=== PATIENT | male | born 1940 | race Caucasian/White ===

== ENCOUNTER → 2018-02-17 12:11 | Outpatient (CLI) | payer MEDICARE, OTHER, SELFPAY | PROVIDERS: Family Provider Internal Medicine; PCP Internal Medicine; Referring Provider Dermatology; Visit Provider Dermatology | DX: L02.415 Cutaneous abscess of right lower limb (principal) | CPT/HCPCS: 87070; 87077; 87186; 87205 ==

== ENCOUNTER → 2019-02-12 06:19 | Outpatient (CLI) | payer MEDICARE, OTHER, SELFPAY ==
--- NOTE | 2019-02-13 14:19 | STRESSREP_ITS ---
Stress Test Report Date: 02/12/2019 Procedure: Pharmacologic stress nuclear imaging study Indications: Shortness of breath Consent: Per the patient Procedure: The patient underwent pharmacologic (Regadenoson) evaluation with a peak heart rate of 82 beats per minute (57 %predicted maximal heart rate) and a peak blood pressure of 148/70 mmHg. The baseline ECG demonstrated sinus rhythm. EKG during lexiscan infusion revealed no significant ischemic changes. EKG post infusion revealed no significant ischemic changes. [There were no cardiac dysrhythmias pretest, during pharmacologic infusion, or recovery]. [There was no complaint of chest discomfort during pharmacologic infusion or recovery]. The examination was discontinued secondary to completion of protocol. Impression: 1. Lexiscan stress test test is negative for Lexiscan infusion induced EKG changes of ischemia. 2. Lexiscan stress test test is negative for Lexiscan infusion induced chest pain. 3. Results of the nuclear portion of the test is as below Myocardial perfusion imaging study: Technique: The patient was injected with [10] millicuries of technetium 99m Cardiolite and subsequently rest SPECT Cardiolite nuclear imaging was obtained in the horizontal long, vertical long, and short axis views. The patient underwent pharmacologic (Regadenoson) evaluation. Please see above for details. The patient was injected with 36 millicuries of technetium 99m Cardiolite and subsequently stress SPECT Cardiolite nuclear imaging was obtained in the horizontal long, vertical long, and short axis views. A gated Cardiolite study at peak stress was obtained. Interpretation: Rest and stress SPECT Cardiolite nuclear imaging status post realignment, normalization, and attenuation correction demonstrate normal myocardial radioisotope uptake on the rest and stress images. Gated images reveal no significant regional wall motion abnormalities. The reported LVEF is greater than 70 %. Impression: 1. There is no evidence of significant ischemia or infarction. 2. Estimated ejection fraction is greater than 70%. This note was generated with [employer]uppet[employer] software. It may contain incorrect words, spelling, and punctuation that were not noted in checking the note before signing.
== END ==
PROVIDERS: Family Provider Internal Medicine; PCP Internal Medicine; Referring Provider Internal Medicine; Visit Provider Internal Medicine
DX: R06.02 Shortness of breath (principal)
CPT/HCPCS: 78452; 93017; A9500; A4216; J2785

== ENCOUNTER 2021-05-10 16:04 | Observation (INO) | payer MEDICARE, OTHER, SELFPAY ==
[2021-05-10 16:06] VITALS: BP 142/67; PULSE 72; RESP 18; TEMP 36.4; O2SAT 98; BMI 22.3
[2021-05-10 16:44] LABS: Absolute Lymphocyte Count 2.24 X10^3/uL (0.83-4.51); Absolute Neutrophil Count 7.9 X10^3/uL (2.0-7.7); Basophil# 0.06 X10^3/uL; Basophil% 0.5 % (0-1); Eosinophil# 0.05 X10^3/uL; Eosinophils% 0.5 % (0-5); Hematocrit 41.3 % (40-54); Hemoglobin 13.2 g/dL (13.0-16.5); Lymphocyte # 2.24 X10^3/ul (0.83-4.51); Lymphocyte % 20.3 % (19-41); Mean Corpuscular Hgb 29.3 pg (27.0-32.0); Mean Corpuscular Volume 91.8 fL (80-94); Mean Platelet Vol. 9.4 fl (6.2-12.0); Monocyte# 0.77 X10^3/uL; NRBC Flagged by Analyzer 0 % (0-5); Neutrophil # 7.89 X10^3/uL (2.7-7.7); Neutrophil % 71.4 % (47-70); Platelet Count 356 K/mm3 (150-450); RBC Distribution Width SD 50.6 fl (35.1-43.9)
[2021-05-10 16:59] LABS: Anion Gap 6 (5-15); BUN 13 mg/dL (7-18); BUN/Creat Ratio 14.3 RATIO (10-20); Calcium,Total 9.2 mg/dL (8.5-10.1); Chloride 106 mmol/L (98-107); Creatinine, Serum 0.91 mg/dL (0.70-1.30); EST Glomerular Filtration Rate 86 mL/min (>60); Est Glom Filt Rate - Afr Amer 103 mL/min (>60); Estimated Creatinine Clearance 67.57 ml/min; Glucose 113 mg/dL (74-106); Potassium 4.7 mmol/L (3.5-5.1); Sodium Level 138 mmol/L (136-145)
[2021-05-10 17:34] LABS: Mucous, Urine 0 SEEN /hpf (<or=2+); Squamous Epithelial Cells - UA 0 SEEN /hpf (0-5)
[2021-05-10 17:45] LABS: Color, Urine Yellow (Yellow); Glucose, Dipstick Normal (Normal); Ketone-Dipstick 50 mg/dl (Negative); Leukocyte Esterase-Dipstick 25 /ul (Negative); Nitrite-Dipstick Negative (Negative); Occult Blood-Urine 10 /ul (Negative); Protein-Dipstick 30 mg/dl (Negative); Urine Bilirubin Dipstick Negative (Negative); Urine Clarity Clear (Clear); Urine Urobilinogen Normal (Normal)
[2021-05-10 18:08] LABS: Bacteria RARE /hpf (None Seen); Red Blood Cells-Urine 0-5 SEEN /hpf (0-5); White Blood Cells 0-5 SEEN /hpf (0-5)
--- NOTE | 2021-05-10 18:57 | CT_ITS ---
We are attempting to reach an attending provider to discuss findings. An addendum with communication details will be sent when the communication is complete. STUDY: CT ABDOMEN AND PELVIS WITH CONTRAST REASON FOR EXAM: Male, 80 years old. Abdominal pain RADIATION DOSAGE (If Supplied By Facility): CTDIvol = ( 12.125 ) mGy, DLP = ( 656.08 ) mGycm TECHNIQUE: Transaxial images were obtained from the dome of the diaphragm to the symphysis pubis without oral contrast. IV 100mL Isovue-300 was administered. Sagittal and coronal images were reconstructed. Individualized dose optimization techniques were used for this CT. COMPARISON: None. FINDINGS: The visualized lung bases are unremarkable. The visualized portions of the heart are within normal limits. Normal liver. Normal gallbladder and extrahepatic biliary system. Normal spleen. Normal pancreas. Normal bilateral adrenal glands. Normal right kidney. Normal left kidney. Normal visualized stomach. Several loops of mildly dilated small bowel. Normal colon. There is a tubular, thick-walled appendix (>7mm), consistent with acute appendicitis. There is diffuse atherosclerotic calcification of the abdominal aorta, without a demonstrated aneurysm. Normal inferior vena cava. Normal retroperitoneum. Normal urinary bladder. There are prostatic calcifications. Normal abdominal wall. Normal osseous structures. CT/Abdomen/Pelvis W IV Cont ONLY IMPRESSION: Findings consistent with acute appendicitis. Mild proximal bowel wall thickening and dilatation may be reactive. Electronically Signed: Renny Prado MD at 20:20 EST ,
--- NOTE | 2021-05-10 18:57 | ED.VIS.GI ---
HPI HPI - GI History of Present Illness Chief Complaint: Abd Pain Narrative Narrative: 80-year-old male presenting for evaluation of abdominal pain. He points to his mid abdomen. He states been hurting since this morning. He denies nausea, vomiting, fever, chills, constipation, diarrhea. He has no urinary complaints. He states his pain is 5/10. It does not radiate. Patient also complains of irritation around his rectum when he wipes after a bowel movement. He states this is been going on for a month. He has not had this evaluated however he states that his did look at it and thought she saw white heads with hairs sticking out of him. PFSH PFSH Home Medications aspirin 81 mg PO DAILY@0800 10/20/16 [History Last Taken Unknown] multivitamin [Daily Multiple Vitamin] 1 ea PO DAILY 10/20/16 [History Last Taken Unknown] simvastatin 40 mg PO QHS 10/20/16 [History Last Taken Unknown] losartan 50 mg PO DAILY 05/10/21 [History Last Taken Unknown] rosuvastatin 40 mg PO DAILY 05/10/21 [History Last Taken Unknown] Allergy/AdvReac Type Severity Reaction Status Date / Time cefuroxime [From Ceftin] Allergy Rash Verified 05/10/21 16:05 latex Allergy Rash Verified 05/10/21 16:05 Social History Smoking Status: Current every day smoker tobacco type: cigarettes ROS ROS ED Constitutional Constitutional ED: Denies chills or fever(s) ENT ENT ED: Denies rhinorrhea or sore throat Cardiovascular Cardiovascular: Denies chest pain or palpitations Respiratory/Chest Respiratory/Chest: Denies cough or dyspnea Gastrointestinal Gastrointestinal: Denies abdominal pain or nausea Genitourinary Genitourinary ED: Denies dysuria or hematuria Musculoskeletal Musculoskeletal: Denies arthralgias or myalgias Integumentary Denies Abrasions or rash Neurologic Neurologic: Denies headache(s) or weakness Psychiatric Psychiatric: Denies anxiety or depression EXAM Physical Exam Const Vital Signs: 05/10/21 16:06 05/10/21 19:18 05/10/21 20:34 Temperature 97.6 F L Temperature Source Temporal Pulse Rate 72 70 Respiratory Rate 18 14 Blood Pressure 142/67 H 134/69 H Blood Pressure Mean 92 90 Pulse Ox 98 98 98 Oxygen Delivery Method Room Air Room Air Room Air Positive well nourished General Appearance ED: NAD; Negative for pallor HEENT Reports moist mucous membranes normocephalic and atraumatic Eyes PERRL and EOMs intact bilaterally General Eye ED: Negative for pale conjunctiva or scleral icterus Neck no lymphadenopathy and supple Resp normal respiratory effort and clear to auscultation bilaterally Cardio regular rate and regular rhythm GI Auscultation: normoactive bowel sounds Palpation: soft and tender RLQ Back/Spine no CVA tenderness Neuro Sensorium / Orientation: alert, oriented to person, oriented to place and oriented to time Psych mental status grossly normal and thought process normal Skin General Skin Exam: Negative for jaundice or pallor MDM MDM MDM Narrative Medical decision making narrative: Patient presenting with abdominal pain which he initially pointed to his mid gut. On examination he did not appear tender and stated that maybe he was a little tender in his right lower quadrant. He denies any other associated symptoms. His CBC and CMP are unremarkable. Lipase is normal. Urinalysis is negative for infection. I did had a CT of the abdomen pelvis with IV contrast which does show concern for acute appendicitis. This was discussed with Dr. Mcdaniel who will come evaluate the patient at the bedside. I gave the patient IV fluids and Zosyn. In addition to this he wanted his pain treated now that he knew he was staying in hospital. I gave him morphine and Zofran. Patient been in stable condition. Impression: 1. Acute appendicitis Lab Data Attestation: I reviewed the patient's lab results. Labs: Laboratory Results - last 24 hr 05/10/21 05/10/21 05/10/21 16:31 16:31 16:31 WBC 11.0 RBC 4.50 L Hgb 13.2 Hct 41.3 MCV 91.8 MCH 29.3 MCHC 32.0 RDW Std Deviation 50.6 H RDW Coeff of [place] 15.0 H Plt Count 356 MPV 9.4 Immature Gran % (Auto) 0.300 Neut % (Auto) 71.4 H Lymph % (Auto) 20.3 [place] % (Auto) 7.0 Eos % (Auto) 0.5 Baso % (Auto) 0.5 Absolute Neuts (auto) 7.9 H Absolute Lymphs (auto) 2.24 Nucleated RBC % 0 Sodium 138 Potassium 4.7 Chloride 106 Carbon Dioxide 26.0 Anion Gap 6 BUN 13 Creatinine 0.91 Estim Creat Clear Calc 67.57 Est GFR (MDRD) Af Amer 103 Est GFR (MDRD) Non-Af 86 BUN/Creatinine Ratio 14.3 Glucose 113 H Calcium 9.2 Lipase 123 Urine Color Urine Clarity Urine pH Ur Specific [place] Urine Protein Urine Glucose (UA) Urine Ketones Urine Occult Blood Urine Nitrite Urine Bilirubin Urine Urobilinogen Ur Leukocyte Esterase Urine RBC Urine WBC Ur Squamous Epith Cells Urine Bacteria Urine Mucus 05/10/21 17:26 WBC RBC Hgb Hct MCV MCH MCHC RDW Std Deviation RDW Coeff of [place] Plt Count MPV Immature Gran % (Auto) Neut % (Auto) Lymph % (Auto) [place] % (Auto) Eos % (Auto) Baso % (Auto) Absolute Neuts (auto) Absolute Lymphs (auto) Nucleated RBC % Sodium Potassium Chloride Carbon Dioxide Anion Gap BUN Creatinine Estim Creat Clear Calc Est GFR (MDRD) Af Amer Est GFR (MDRD) Non-Af BUN/Creatinine Ratio Glucose Calcium Lipase Urine Color Yellow Urine Clarity Clear Urine pH 6.0 Ur Specific [place] 1.020 Urine Protein 30 H Urine Glucose (UA) Normal Urine Ketones 50 H Urine Occult Blood 10 H Urine Nitrite Negative Urine Bilirubin Negative Urine Urobilinogen Normal Ur Leukocyte Esterase 25 H Urine RBC 0-5 SEEN Urine WBC 0-5 SEEN Ur Squamous Epith Cells 0 SEEN Urine Bacteria RARE Urine Mucus 0 SEEN Radiography Diagnostic Testing: Clinical Impression(s) from Imaging Studies Abdomen/Pelvis CT 05/10/21 18:57 IMPRESSION: Findings consistent with acute appendicitis. Mild proximal bowel wall thickening and dilatation may be reactive. Electronically Signed: Renny Prado MD at 20:20 EST , ADDENDUM: 05/10/212042 IMPRESSION: Findings consistent with acute appendicitis. Mild proximal bowel wall thickening and dilatation may be reactive. N.B. : The above Results were Read Back by Renny Prado MD to Dr. Madi Howard DO, DO, and understanding confirmed on 05/10/2021 20:36:39 (ET). Electronically Signed: Renny Prado MD at 20:20 EST , Discharge Plan Triage Chief Complaint: Abd Pain ED Provider: Madi Howard Dx/Rx/DC Orders Prescriptions: No Action multivitamin [Daily Multiple] 1 EACH tablet 1 ea PO DAILY RF: 0 simvastatin 40 MG tablet 40 mg PO QHS RF: 0 aspirin 81 MG tablet,chewable 81 mg PO DAILY@0800 RF: 0 rosuvastatin 40 mg tablet 40 mg PO DAILY RF: 0 losartan 50 mg tablet 50 mg PO DAILY RF: 0 Primary Care Provider: Charisse Benson
[2021-05-10 19:18] VITALS: O2SAT 98
[2021-05-10 19:21] LABS: Lipase 123 U/L (73-393)
[2021-05-10 20:34] VITALS: BP 134/69; PULSE 70; RESP 14; O2SAT 98
[2021-05-10] MEDS: Ondansetron 4 MG/2 ML Vial IV (20:39)
[2021-05-10] MEDS: Morphine 4 MG/ML Syringe IV (20:40)
--- NOTE | 2021-05-10 21:21 | PCM.HP.STD ---
HPI - General HPI Narrative ROBBIE MG, is a 80 M who presents to [facility] with complaints of acute onset abdominal pain at 10 AM this morning. He states the pain began rather generalized around his umbilicus and has not migrated but he does have some associated back pain at this point. ER work-up is notable for CBC demonstrating normal white blood cell count but evidence of a left shift. CT imaging was remarkable for evidence of acute appendicitis. Surgery was asked to evaluate patient once this imaging resulted. Patient states this is his first such episode of abdominal pain. He denies any associated nausea or vomiting. He states he had a normal bowel movement this morning. He denies any associated fevers or chills. Past medical history is notable for hypertension, hyperlipidemia, and skin cancer. Patient is a current smoker and has been smoking for the past 60 years. He averages 12 cigarettes a day, but previously smoked as much as a pack a day. He has never had a Covid infection but has received both vaccine doses and his booster. He also reports a sore spot on the backside of his rectum when wiping and questions whether this is related to his abdominal process. [facility] Home Medications aspirin 81 mg PO DAILY@0800 10/20/16 [History Last Taken Unknown] multivitamin [Daily Multiple Vitamin] 1 ea PO DAILY 10/20/16 [History Last Taken Unknown] simvastatin 40 mg PO QHS 10/20/16 [History Last Taken Unknown] losartan 50 mg PO DAILY 05/10/21 [History Last Taken Unknown] rosuvastatin 40 mg PO DAILY 05/10/21 [History Last Taken Unknown] Allergy/AdvReac Type Severity Reaction Status Date / Time cefuroxime [From Ceftin] Allergy Rash Verified 05/10/21 16:05 latex Allergy Rash Verified 05/10/21 16:05 Social History Smoking Status: Current every day smoker tobacco type: cigarettes Vital Signs Vital Signs Vital Signs: 05/10/21 16:06 05/10/21 19:18 05/10/21 20:34 Temperature 97.6 F L Temperature Source Temporal Pulse Rate 72 70 Respiratory Rate 18 14 Blood Pressure 142/67 H 134/69 H Blood Pressure Mean 92 90 Pulse Ox 98 98 98 Oxygen Delivery Method Room Air Room Air Room Air Weight Weight: 160 lb Body Mass Index (BMI) 22.3 Physical Exam Const alert and oriented x3 General Appearance: cooperative and well developed GI soft to palpation GI Narrative: Patient with some left lower quadrant tenderness but primary tenderness in the right lower quadrant over McBurney's point. Positive psoas, positive obturator. 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 This area is tender to palpation. Inspection: Negative for abdominal distention Palpation: guarding RLQ Results Lab / Micro Data Result Diagrams: 05/10/21 16:31 05/10/21 16:31 Labs: Laboratory Results - last 24 hr 05/10/21 16:31: WBC 11.0, RBC 4.50 L, Hgb 13.2, Hct 41.3, MCV 91.8, MCH 29.3, MCHC 32.0, RDW Std Deviation 50.6 H, RDW Coeff of Santana 15.0 H, Plt Count 356, MPV 9.4, Immature Gran % (Auto) 0.300, Neut % (Auto) 71.4 H, Lymph % (Auto) 20.3, [place] % (Auto) 7.0, Eos % (Auto) 0.5, Baso % (Auto) 0.5, Absolute Neuts (auto) 7.9 H, Absolute Lymphs (auto) 2.24, Nucleated RBC % 0 05/10/21 16:31: Sodium 138, Potassium 4.7, Chloride 106, Carbon Dioxide 26.0, Anion Gap 6, BUN 13, Creatinine 0.91, Estim Creat Clear Calc 67.57, Est GFR (MDRD) Af Amer 103, Est GFR (MDRD) Non-Af 86, BUN/Creatinine Ratio 14.3, Glucose 113 H, Calcium 9.2 05/10/21 16:31: Lipase 123 05/10/21 17:26: Urine Color Yellow, Urine Clarity Clear, Urine pH 6.0, Ur Specific [place] 1.020, Urine Protein 30 H, Urine Glucose (UA) Normal, Urine Ketones 50 H, Urine Occult Blood 10 H, Urine Nitrite Negative, Urine Bilirubin Negative, Urine Urobilinogen Normal, Ur Leukocyte Esterase 25 H, Urine RBC 0-5 SEEN, Urine WBC 0-5 SEEN, Ur Squamous Epith Cells 0 SEEN, Urine Bacteria RARE, Urine Mucus 0 SEEN Radiology Impression Abdomen/Pelvis CT 05/10/21 18:57 IMPRESSION: Findings consistent with acute appendicitis. Mild proximal bowel wall thickening and dilatation may be reactive. Electronically Signed: Renny Prado MD at 20:20 EST , ADDENDUM: 05/10/212042 IMPRESSION: Findings consistent with acute appendicitis. Mild proximal bowel wall thickening and dilatation may be reactive. N.B. : The above Results were Read Back by Renny Prado MD to Dr. Madi Howard DO, DO, and understanding confirmed on 05/10/2021 20:36:39 (ET). Electronically Signed: Renny Prado MD at 20:20 EST , Assessment & Plan Assessment/Plan (1) Appendicitis: PLAN: This is a 80-year-old, reasonably healthy, male who presents with a less than 12-hour history of acute onset abdominal pain and CT imaging consistent with acute appendicitis. His exam confirms this diagnosis and laparoscopic appendectomy is recommended. Procedure and postoperative expectations were described to the patient and his spouse in detail. They are accepting of this recommendation and wished to proceed as described. Antibiotics are already started by emergency medicine. Patient to be transferred from the ER to the operating room area but then plan for overnight observation following the surgery. 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 Would recommend a small biopsy once patient is through the recovery of his appendicitis. Charges/Coding Visit Charges Inpatient E&M: 45995 Init Hosp L2
--- NOTE | 2021-05-10 21:50 | APP_PTH ---
PATIENT: ROBBIE MG LOC: MS3 U#:[id number] AGE/SX: 80/M ROOM: TX311 RE05/11/[address]: Dr. Nazario Mcdaniel MD : 1940 BED: 1 DIS: 05/11/2021 SPEC #: [id number] RECD: 05/11/21 07:30 STATUS: YELENA RESebastien #: [id number] NIRAJ: 05/10/21 21:[address]: Nazario Mcdaniel DEPT: SURGICAL PATHOLOGY RECD BY: Marybeth Cooper ENTERED: 05/11/21 07:56 SP TYPE: APPENDIX OTHR DR: Dr. Charisse Benson MD Tissues: Appendix, NOS Procedures: Surgery Specimen Level III HEADER OPERATION: Laparoscopic appendectomy PRE-OP DIAGNOSIS: Acute appendicitis TISSUE SUBMITTED: Appendix MICROSCOPIC DIAGNOSIS Appendix, appendectomy: Acute appendicitis and periappendicitis. KIMBERLY:aurelia 05/12/2021 MICROSCOPIC DESCRIPTION Slides are reviewed. GROSS DESCRIPTION Received in fixative is one container labeled with the patient's name and designated appendix. The specimen consists of an appendix measuring 6 cm in length. The distal 3.5 cm length of the appendix is dilated and measures up to 1 cm in diameter and the rest of the appendix measures 0.5 cm in diameter. No obvious perforation is identified. The serosa is congested. The dilated portion of the appendix is filled with fecal material. No fecalith is identified. Floor Coverings Installer sections are submitted in one cassette. / SJ:aurelia 05/11/2021 TC:2 CPT: 42425
--- NOTE | 2021-05-10 22:22 | EKG12_ITS ---
Test Reason : PRE OP Blood Pressure : / mmHG Vent. Rate : 073 BPM Atrial Rate : 073 BPM P-R Int : 170 ms QRS Dur : 096 ms QT Int : 396 ms P-R-T Axes : 063 101 073 degrees QTc Int : 436 ms Sinus rhythm with Premature atrial complexes Nonspecific ST abnormality Abnormal ECG Confirmed by MIO ZAMORANO, MARTIN ([id number]), newspaper editor BRUCE FRANCO ([id number]) on 05/11/2021 10:24:54 A M Referred By: BETTY Confirmed By:SOPHIA LIEBERMAN MD
[2021-05-10 22:31] VITALS: BP 134/69; PULSE 82; RESP 16; TEMP 35.7; O2SAT 98
[2021-05-10] MEDS: Bupivacaine Mpf 0.5% 30 ML VIAL (23:58)
[2021-05-11] VITALS (11 sets, daily range): BP systolic 118–148; BP diastolic 49–69; PULSE 66–83; RESP 16–18; TEMP 36.6–37.3; O2SAT 91–97; BMI 22.3
--- NOTE | 2021-05-11 00:09 | OP.PCM_ITS ---
Problems Associated Problem List Diagnoses (1) Acute appendicitis with localized peritonitis without abscess: Report of Operation Date of Procedure: 05/11/21 Pre-Operative Diagnosis: Acute Appendicitis Post-Operative Diagnosis: Acute appendicitis without perforation Surgery/Procedure Performed:: Laparoscopic appendectomy Description of Surgical Findings:: ?Whitish spotting appearance to the small bowel along the mesenteric side ?Normal-appearing appendiceal base with significant dilation and inflammation at the tip and adhesions adjacent to the cecum Surgeon: Nazario Mcdaniel jet dyeing machine operator: None Type of Anesthesia: General/Supplemental Anesthesiologist: Lewis Corado Specimen's removed: Appendix Drains: NA Estimated Blood Loss (mL): 10 Description of Procedure: After appropriate identification in the emergency room the patient was brought to the operating room. There patient was positioned supine on the operating room table (they had previously received antibiotics in the emergency department). Patient was then induced with general endotracheal anesthetic. The abdomen was prepped and draped in usual sterile fashion. Formal timeout was conducted to confirm both the patient and the procedure. A supraumbilical incision was made and carried down to the level of the fascia which was sharply opened. After opening the peritoneum in like fashion, a f norm sweep was made to confirm position, and a balloon trocar was placed and pneumoperitoneum was established to 15 mmHg. Patient was positioned in Trendelenburg with the left side down. 2 additional 5 mm trocars were placed in the left lower quadrant and suprapubic positions. The peritoneum was inspected and there were no signs of inadvertent injury from this Posey entry. With the laparoscope I observed an a loop of small bowel with some white spots seen along the mesenteric aspect of the bowel. The appendix was visualized with a normal base but the body and tip were not visible because they were tucked to the right right and deep to the cecum. The laparoscopic harmonic scalpel was used to divide the adhesions between the epiploic fat and the lateral sidewall to expose the appendix. I attempted to bluntly free the appendix from this pocket but it densely adherent at the tip. Using blunt laparoscopic dissection, a window was made in the mesoappendix adjacent to the appendiceal base. The mesoappendix was divided for a distance with application of a laparoscopic harmonic scalpel. Still, the tip remained adherent in the pocket so I carefully grasped this tissue to minimize the risk for perforation and elevated to the point that I was able to divide the adherent mesoappendix with additional application of a laparoscopic harmonic scalpel. Then the base of the appendix was sealed and amputated with the use of a Endo MARIVEL stapler. The appendix was placed in an Endo Catch bag. The staple line was inspected for hemostasis. After hemostasis was confirmed the appendix was removed from the umbilical port site. Pneumoperitoneum was then evacuated and the supraumbilical port site fascia was closed with #1 Vicryl in a [id number] fashion. The port sites were infil trated with 13 mL local anesthetic. The skin of each port site was closed with 4-0 Monocryl in a subcuticular fashion. Steri-Strips and OpSite dressings were applied. Patient tolerated procedure well without any apparent complications. They were awoken from general anesthetic without issue and transferred to post anesthesia care unit for ongoing recovery. Complications None Admit VTE Documentation VTE Mechan Device Prophylaxis: SCD's Procedures Digestive 40xxx-49xxx: 10136 Laparoscopy appendectomy
[2021-05-11] MEDS: 0.9% Normal Saline 1,000 ML 50 ML IV (01:47)
[2021-05-11] MEDS: HYDROmorphone 0.5 MG/0.5 ML SYRINGE IV (01:47)
[2021-05-11] MEDS: 0.9% Saline Lock 10 ML Syringe IV (01:48)
[2021-05-11] MEDS: oxyCODONE 5 MG Tablet PO ×3 (02:22→14:02)
--- NOTE | 2021-05-11 07:29 | PCM.DC ---
Discharge Instructions Diet Discharge Diet: No restrictions Activity Discharge Activity: May Not Drive (No driving while using narcotic pain medication) and May Shower Lifting Restrictions: No lifting greater than 15 pounds for 2 weeks after surgery Dressing / Incision Call your doctor if your incision/area has: Continuous Slow Oozing, Increased Pain/ Swelling, Increased Redness, Foul Smelling Discharge and Swelling at the incision site Call your doctor if you observe: Fever of 101 or Higher and Inability to urinate Remove Dressing in: 1 day (Please leave Steri-Strips intact until they fall off spontaneously or are taken off at your follow-up visit) Cleanse incision/area with: Soap & Water Follow Up Care Please Follow Up With: Nazario Mcdaniel MD When: 1 week postop Test Results: Test results from this visit will be discussed in further detail at your follow-up appointment, if applicable. Discharge Plan Admission Admit Date/Time: 05/11/21 00:48 Primary Reason for Your Visit: Acute appendicitis Attending Provider: Nazario Mcdaniel Primary Care Provider: Charisse Benson Instructions Patient Instructions: Appendectomy Laparoscopic Dc Discharge Orders/Prescriptions Prescriptions: New oxycodone 5 mg Tablet 5 mg PO Q6H PRN PRN (Reason: Pain Score 6-10) 5 Days Qty: 10 RF: 0 Continued multivitamin [Daily Multiple] 1 EACH tablet 1 ea PO DAILY RF: 0 aspirin 81 MG tablet,chewable 81 mg PO DAILY@0800 RF: 0 rosuvastatin 40 mg tablet 40 mg PO QHS RF: 0 losartan 50 mg tablet 50 mg PO DAILY RF: 0 Referrals / Follow Up: Charisse Benson MD [Primary Care Provider] -
--- NOTE | 2021-05-11 07:31 | DS.PCM_ITS ---
Providers Date of Admission: 05/11/21 Primary Care Physician: Dr. Charisse Benson MD Reason For Visit: ACUTE APPENDICITIS Diagnosis Discharge Diagnosis (1) Acute appendicitis with localized peritonitis without abscess: Status: Acute Code(s): K35.30 - Acute appendicitis with localized peritonitis, without perforation or gangrene Medications at Discharge Home Medications aspirin 81 mg PO DAILY@0800 10/20/16 multivitamin [Daily Multiple] 1 ea PO DAILY 10/20/16 losartan 50 mg PO DAILY 05/10/21 rosuvastatin 40 mg PO QHS 05/10/21 oxycodone 5 mg PO Q6H PRN PRN 5 Days #10 tab 05/11/21 Hospital Course Operations appendectomy Summary of Care Provided Hospital Course: Patient was seen in the ER on 05/10/2021 after ER work-up and CT imaging showed evidence of acute, uncomplicated appendicitis. Given his medical comorbidities, he is deemed an operative candidate and offered a laparoscopic appendectomy. Patient accepted this recommendation and we proceeded to the operating room for emergent laparoscopic appendectomy. The case proceeded uncomplicated and the patient was admitted for observation overnight. The morning of postoperative day 1 the patient's pain was well controlled and he tolerated advancement to a regular diet. With this clinical progress, he was deemed appropriate for discharge and given a 1 week outpatient follow-up. Physical Exam Const alert, oriented x3 and no apparent distress General Appearance: cooperative GI GI Narrative: Mildly distended, soft, tender to palpation in the right lower quadrant and mildly so over incision sites. Operative dressings are in place over the port sites and are clean and dry without evidence of drainage Weight / BMI Weight Weight: 159 lb 13.362 oz Body Mass Index (BMI) 22.3 ABG / Lab / Microbiology Data Result Diagrams: 05/10/21 16:31 05/10/21 16:31 Laboratory: Laboratory Results - last 24 hr 05/10/21 16:31: WBC 11.0, RBC 4.50 L, Hgb 13.2, Hct 41.3, MCV 91.8, MCH 29.3, MCHC 32.0, RDW Std Deviation 50.6 H, RDW Coeff of [place]ana 15.0 H, Plt Count 356, MPV 9.4, Immature Gran % (Auto) 0.300, Neut % (Auto) 71.4 H, Lymph % (Auto) 20.3, [place] % (Auto) 7.0, Eos % (Auto) 0.5, Baso % (Auto) 0.5, Absolute Neuts (auto) 7.9 H, Absolute Lymphs (auto) 2.24, Nucleated RBC % 0 05/10/21 16:31: Sodium 138, Potassium 4.7, Chloride 106, Carbon Dioxide 26.0, Anion Gap 6, BUN 13, Creatinine 0.91, Estim Creat Clear Calc 67.57, Est GFR (MDRD) Af Amer 103, Est GFR (MDRD) Non-Af 86, BUN/Creatinine Ratio 14.3, Glucose 113 H, Calcium 9.2 05/10/21 16:31: Lipase 123 05/10/21 17:26: Urine Color Yellow, Urine Clarity Clear, Urine pH 6.0, Ur Specific [place] 1.020, Urine Protein 30 H, Urine Glucose (UA) Normal, Urine Ketones 50 H, Urine Occult Blood 10 H, Urine Nitrite Negative, Urine Bilirubin Negative, Urine Urobilinogen Normal, Ur Leukocyte Esterase 25 H, Urine RBC 0-5 SEEN, Urine WBC 0-5 SEEN, Ur Squamous Epith Cells 0 SEEN, Urine Bacteria RARE, Urine Mucus 0 SEEN Radiography Diagnostic Testing: Radiology Impression Abdomen/Pelvis CT 05/10/21 18:57 IMPRESSION: Findings consistent with acute appendicitis. Mild proximal bowel wall thickening and dilatation may be reactive. Electronically Signed: Renny Prado MD at 20:20 EST Reading Location ID and State: [address] [place] [address] Tel , Service support , ADDENDUM: 05/10/212042 IMPRESSION: Findings consistent with acute appendicitis. Mild proximal bowel wall thickening and dilatation may be reactive. N.B. : The above Results were Read Back by Renny Prado MD to Dr. Madi Howard DO, DO, and understanding confirmed on 05/10/2021 20:36:39 (ET). Electronically Signed: Renny Prado MD at 20:20 EST , D/C Instructions Discharge Diet: No restrictions Call your doctor if your incision/area has: Continuous Slow Oozing, Increased Pain/ Swelling, Increased Redness, Foul Smelling Discharge and Swelling at the incision site Call your doctor if you observe: Fever of 101 or Higher and Inability to urinate Cleanse incision/area with: Soap & Water Please Follow Up With: Nazario Mcdaniel MD When: 1 week postop Meaningful Use Info Meaningful Use Diagnoses (Choose all that apply): None applicable Discharge Plan Admission Admit Date/Time: 05/11/21 00:48 Primary Reason for Your Visit: Acute appendicitis Attending Provider: Nazario Mcdaniel Primary Care Provider: Charisse Benson Instructions Patient Instructions: Appendectomy Laparoscopic Dc Discharge Orders/Prescriptions Prescriptions: New oxycodone 5 mg Tablet 5 mg PO Q6H PRN PRN (Reason: Pain Score 6-10) 5 Days Qty: 10 RF: 0 Continued multivitamin [Daily Multiple] 1 EACH tablet 1 ea PO DAILY RF: 0 aspirin 81 MG tablet,chewable 81 mg PO DAILY@0800 RF: 0 rosuvastatin 40 mg tablet 40 mg PO QHS RF: 0 losartan 50 mg tablet 50 mg PO DAILY RF: 0 Referrals / Follow Up: Charisse Benson MD [Primary Care Provider] - Disposition Discharge Orders: Discharge Patient (Routine); Ordered 05/11/21 Ordered By: Dr. Nazario Mcdaniel
[2021-05-11] MEDS: Aspirin 81 MG TAB.CHEW PO (08:39)
--- NOTE | 2021-05-11 14:05 | NURSING ---
Pt took I.S home and instructed to keep using every hour x10 reps while awake. Pt and understand.
== END 2021-05-11 14:05 ==
LOC: ED 18:51 → SDC 21:31 → MS3 21:33 → SDC 05-11 01:12 → MS3 05-11 01:13
PROVIDERS: Admitting Provider Surgery; Emergency Provider Student in an Organized Health Care Education/Training Program; PCP Internal Medicine; Visit Provider Surgery
PROC: 0DTJ4ZZ Resection of Appendix, Percutaneous Endoscopic Approach (ICD-10-PCS; CPT 44970; principal; 2021-05-10 21:50)
DX: K35.30 Acute appendicitis with localized peritonitis, without perforation or gangrene (principal); J44.9 Chronic obstructive pulmonary disease, unspecified; E78.5 Hyperlipidemia, unspecified; F17.210 Nicotine dependence, cigarettes, uncomplicated; I10 Essential (primary) hypertension; I25.10 Atherosclerotic heart disease of native coronary artery without angina pectoris; Z79.899 Other long term (current) drug therapy; Z79.82 Long term (current) use of aspirin; L98.9 Disorder of the skin and subcutaneous tissue, unspecified
CPT/HCPCS: 44970; 00840; 74177; 80048; 81001; 83690; 85025; 88304; 93005; 96365; 96375; 99218; 99251; 99284; 99406; J7030; Q9967; A4216; G0378; G0463; J2405

== ENCOUNTER 2021-06-30 09:29 | Outpatient (CLI) | payer MEDICARE, OTHER, SELFPAY ==
[2021-06-30 10:40] LABS: Absolute Lymphocyte Count 3.31 X10^3/uL (0.83-4.51); Absolute Neutrophil Count 4.2 X10^3/uL (2.0-7.7); Basophil# 0.09 X10^3/uL; Eosinophil# 0.15 X10^3/uL; Eosinophils% 1.7 % (0-5); Hematocrit 41.9 % (40-54); Lymphocyte # 3.31 X10^3/ul (0.83-4.51); Lymphocyte % 37.5 % (19-41); Mean Corpuscular Volume 90.3 fL (80-94); Monocyte# 1.05 X10^3/uL; Monocyte% 11.9 % (0-10); NRBC Flagged by Analyzer 0 % (0-5); Neutrophil # 4.19 X10^3/uL (2.7-7.7); Neutrophil % 47.6 % (47-70); Platelet Count 391 K/mm3 (150-450); RBC Distribution Width CV 15.4 % (11.6-14.6); RBC Distribution Width SD 50.2 fl (35.1-43.9); Red Blood Count 4.64 M/mm3 (4.6-6.2); White Blood Count 8.8 K/mm3 (4.4-11.0)
[2021-06-30 10:50] LABS: EXAGEN MAILED SPECIMEN
[2021-06-30 10:55] LABS: Color, Urine Yellow (Yellow); Glucose, Dipstick Normal (Normal); Ketone-Dipstick Negative (Negative); Leukocyte Esterase-Dipstick Negative /ul (Negative); Nitrite-Dipstick Negative (Negative); Occult Blood-Urine Negative /ul (Negative); Protein-Dipstick Negative (Negative); Specific Gravity, Urine 1.005 (1.002-1.030); Urine Bilirubin Dipstick Negative (Negative); Urine Clarity Clear (Clear); Urine Urobilinogen Normal (Normal); Urine pH 6.5 (5.0 - 8.0)
[2021-06-30 10:56] LABS: Protein, Urine (Random) < 6.0 mg/dL (<11.9)
[2021-06-30 11:11] LABS: ALB/GLOB Ratio 0.7 RATIO (0.9-2.4); AST(SGOT) 17 U/L (15-37); Alanine Aminotransfer ALT/SGPT 24 U/L (16-61); Albumin, Serum 3.5 g/dL (3.2-5.0); Alkaline Phosphatase 111 U/L (45-117); Anion Gap 3 (5-15); BUN 12 mg/dL (7-18); Calcium,Total 9.5 mg/dL (8.5-10.1); Chloride 107 mmol/L (98-107); Creatinine, Serum 0.92 mg/dL (0.70-1.30); EST Glomerular Filtration Rate 84 mL/min (>60); Est Glom Filt Rate - Afr Amer 101 mL/min (>60); Globulin 4.8 g/dL (2.2-4.2); Glucose 108 mg/dL (74-106); Potassium 4.4 mmol/L (3.5-5.1); Protein, Total 8.3 g/dL (6.4-8.2); Sodium Level 136 mmol/L (136-145)
[2021-06-30 11:50] LABS: Hepatitis B Surface Antibody Non-Reactive; Hepatitis B Surface Antigen Non-Reactive (Nonreactive); Hepatitis C Antibody Non-Reactive (Nonreactive)
== END 2021-06-30 23:59 | disposition home or self-care (01) ==
LOC: MTLAB 09:31
PROVIDERS: PCP Internal Medicine; Referring Provider Internal Medicine Rheumatology; Visit Provider Internal Medicine Rheumatology
DX: M06.4 Inflammatory polyarthropathy (principal); J44.9 Chronic obstructive pulmonary disease, unspecified; R76.8 Other specified abnormal immunological findings in serum; I10 Essential (primary) hypertension; E78.5 Hyperlipidemia, unspecified; Z85.820 Personal history of malignant melanoma of skin
CPT/HCPCS: 36415; 80053; 81002; 82570; 84156; 85025; 86706; 86803; 87340

== ENCOUNTER → 2021-07-19 | Outpatient (CLI) | payer MEDICARE, OTHER, SELFPAY ==
[2021-07-19 15:53] LABS: Partial Thromboplast Time 30.9 Seconds (24.1-36.2)
[2021-07-21 18:08] LABS: Dilute Russell Viper Venom 38.1 sec (0.0-47.0); Hexagonal Phase Phospholipid 1 sec (0-11); PTT-LA 33.4 sec (0.0-51.9); Thrombin Time 16.3 sec (0.0-23.0); dPT Confirm Ratio 0.94 Ratio (0.00-1.34)
[2021-07-21 18:11] LABS: Thrombin Time 15.7 sec (0.0-23.0)
[2021-07-21 18:13] LABS: Interpretation Comment: (.)
== END | disposition home or self-care (01) ==
PROVIDERS: PCP Internal Medicine; Referring Provider Internal Medicine Rheumatology; Visit Provider Internal Medicine Rheumatology
DX: M06.4 Inflammatory polyarthropathy (principal); J44.9 Chronic obstructive pulmonary disease, unspecified; I10 Essential (primary) hypertension; R76.8 Other specified abnormal immunological findings in serum; E78.5 Hyperlipidemia, unspecified; Z85.820 Personal history of malignant melanoma of skin
CPT/HCPCS: 36415; 85598; 85610; 85670; 85730

== ENCOUNTER 2021-09-01 08:41 | Inpatient (IN) | payer MEDICARE, OTHER, SELFPAY ==
[2021-09-01] VITALS (12 sets, daily range): BP systolic 104–136; BP diastolic 60–87; PULSE 68–76; RESP 12–18; TEMP 36.4–36.9; O2SAT 92–96; BMI 22.3; BMI 21.2
--- NOTE | 2021-09-01 09:01 | EKG12_ITS ---
Test Reason : WEAKNESS Blood Pressure : / mmHG Vent. Rate : 070 BPM Atrial Rate : 070 BPM P-R Int : 168 ms QRS Dur : 084 ms QT Int : 392 ms P-R-T Axes : 061 101 079 degrees QTc Int : 423 ms Normal sinus rhythm Low voltage QRS Borderline ECG Confirmed by JOSEPHINE ZAMORANO, ELLIOT ([id number]), field map editor BRUCE FRANCO ([id number]) on 09/04/2021 10:46:21 AM Referred By: MUNIRA Confirmed By:ELLIOT BURTON MD
--- NOTE | 2021-09-01 09:01 | CT_ITS ---
We are attempting to reach an attending provider to discuss findings. An addendum with communication details will be sent when the communication is complete. STUDY: CT BRAIN WITHOUT CONTRAST REASON FOR EXAM: Male, 81 years old. off balance RADIATION DOSAGE (If Supplied By Facility): CTDIvol = ( 44.99 ) mGy, DLP = ( 829.85 ) mGycm TECHNIQUE: Transaxial CT imaging of the brain was performed without administration of intravenous contrast material. Individualized dose optimization techniques were used for this CT. COMPARISON: 10/20/2016 FINDINGS: Normal soft tissue structures. Normal calvarium. There is mild cerebral atrophy with widening of the extra-axial spaces and ventricular dilatation. There are areas of decreased attenuation within the white matter tracts of the supratentorial brain, consistent with microvascular disease changes. Normal basal ganglia and thalami. Normal brainstem. Decreased attenuation of the superior aspect of the cerebellum involving both hemispheres worrisome for edema possibly from infarct. Correlation with MRI with contrast is recommended. There is no intracranial hemorrhage. 2 cm area of dilatation decreased attenuation within the left frontal lobe may represent a subacute infarct. Normal visualized paranasal sinuses. CT/Brain/Head without Contrast IMPRESSION: Suspect subacute infarcts of the left frontal lobe and the superior cerebellum. Correlation with MRI with contrast is recommended. No acute intracranial hemorrhage. Electronically Signed: Placido Holley MD at 9:39 EDT ,
--- NOTE | 2021-09-01 09:02 | EDS_ITS ---
HPI History of Present Illness Chief Complaint: Weakness Detail of Chief Complaint: Off balance Informant: patient and spouse/S.O. Onset/Context/Timing Onset: Weeks Context: Gradual Onset Timing: Intermittent Quality and Location: Positive for Difficulty with Ambulation; Negative for Right Facial Droop, Left Facial Droop, Right Face Paresthesia, Left Face Parasthesia, Right Arm Parasthesia, Left Arm Parasthesia, Right Leg Parasthesia, Left Leg Parasthesia, Right Arm Weakness, Left Arm Weakness, Right Leg Weakness, Left Leg Weakness, Slurred Speech, Expressive Aphasia and Receptive Aphasia Current Severity: Mild Maximum Severity: Mild Associated Symptoms Associated Symptoms: Negative for Headache, Nausea, Vomiting and Chest Pain Narrative Narrative: .81-year-old male history of COPD, hypertension and diagnosed with lupus about a month ago. and he states he had appendectomy done months ago and is coming going downhill since that time. Last 3 weeks he has been off balance no falls. 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 Denies any visual speech changes. No headache or head trauma. He denies recent illness. No nausea, vomiting or diarrhea. No dysuria or hematuria. No fever or chills. Prior similar symptoms: No Recent Illness/Hospitalization: No PFSH PFS Medical History COPD (chronic obstructive pulmonary disease) Hyperlipidemia Hypertension Lupus Melanoma Smoker Stroke/cerebrovascular accident Home Medications aspirin 81 mg PO DAILY@0800 10/20/16 [History Last Taken 05/09/21] multivitamin [Daily Multiple] 1 ea PO DAILY 10/20/16 [History Last Taken 05/09/21] losartan 50 mg PO DAILY 05/10/21 [History Last Taken 05/09/21] rosuvastatin 40 mg PO QHS 05/10/21 [History Last Taken 05/09/21] Allergy/AdvReac Type Severity Reaction Status Date / Time cefuroxime [From Ceftin] Allergy Rash Verified 09/01/21 08:45 latex Allergy Rash Verified 09/01/21 08:45 Surgical History History of appendectomy Social History Smoking Status: Current every day smoker tobacco type: cigarettes ROS ROS ED ROS Narrative Ataxia. Review of Systems ROS Unobtainable: Denies due to encephalopathy Constitutional Constitutional ED: Denies fever(s) Eyes Eyes: Denies change in vision ENT ENT ED: Denies ear pain Cardiovascular Cardiovascular: Denies chest pain Respiratory/Chest Respiratory/Chest: Denies dyspnea Gastrointestinal Gastrointestinal: Denies abdominal pain, constipation, diarrhea, nausea or vomit ing Genitourinary Genitourinary ED: Denies dysuria Musculoskeletal Musculoskeletal: Denies myalgias Integumentary Denies rash Neurologic Neurologic: Denies headache(s) Psychiatric Psychiatric: Denies depression Endocrine Endocrinology: Denies polyuria Hematologic/Lymphatic Hematologic/Lymphatic: Denies easy bruising Allergic/Immunologic Allergic/Immunologic ED: Denies urticaria EXAM Physical Exam Narrative Exam Narrative: 81-year-old male no acute distress lying in bed. at bedside. Vital signs stable afebrile. Pulse ox 96% on room air no hypoxia. HEENT exam unremarkable. No facial droop. Normal speech. No trauma. Neck nontender. Lungs clear to auscultation bilaterally. Heart regular rate and rhythm no murmur. Abdomen soft nontender normal bowel sounds no peritoneal signs. Moving all 4 extremities. 5/5 demonstrator sewing techniques strength. Dorsi plantarflexion intact. Fingertip to nose within normal limits. No drift of his arms or legs. Neurologic exam unremarkable. No focal motor deficits. Const Vital Signs: 09/01/21 08:41 09/01/21 09:01 09/01/21 09:16 Temperature 97.9 F Temperature Source Temporal Pulse Rate 75 Pulse Rate [Lying] 70 Pulse Rate [Sitting (for 1 minute prior to obtaining)] 68 Pulse Rate [Standing (for 1 minute prior to obtaining)] 76 Respiratory Rate 16 Respiratory Effort Normal Non-Labored Respiratory Pattern Normal Blood Pressure 104/74 Blood Pressure [Lying] 132/60 H Blood Pressure [Sitting (for 1 minute prior to obtaining)] 130/64 H Blood Pressure [Standing (for 1 minute prior to obtaining)] 125/65 H Blood Pressure Mean 84 Blood Pressure Mean [Lying] 84 Blood Pressure Mean [Sitting (for 1 minute prior to obtaining)] 86 Blood Pressure Mean [Standing (for 1 minute prior to obtaining)] 85 Pulse Ox 96 Oxygen Delivery Method Room Air Positive well nourished and well developed; Negative for obese, cachectic, contractures or unkempt General Appearance ED: well developed and NAD; Negative for unkempt, cachectic or contractures Nutritional Appearance: Negative for cachectic or obese HEENT Reports moist mucous membranes atraumatic Eyes PERRL and EOMs intact bilaterally General Eye ED: Negative for pale conjunctiva or scleral icterus Neck no lymphadenopathy, supple and no JVD General: Negative for tenderness Chest Wall inspection of chest normal and palpation of chest normal Resp normal respiratory effort and clear to auscultation bilaterally Auscultation: Negative for rales, rhonchi or wheezes Cardio no murmurs Rate: regular rate Rhythm: regular rhythm Heart Sounds: S1 normal and S2 normal GI normal to inspection, nondistended, normoactive bowel sounds, soft to palpation, non-tender, non-distended and no masses Inspection: Negative for abdominal distention Auscultation: normoactive bowel sounds Palpation: Negative for tender, guarding or rebound tenderness present Back/Spine no CVA tenderness General Back: Negative for CVA tenderness Cervical Spine: Negative for cervical spine tenderness Thoracic Spine / Upper Back: Negative for thoracic spinal tenderness Extremity normal to inspection General Extremety ED: Negative for deformity, edema or tenderness General Extremity: Negative for deformity or edema Neuro oriented x3 Sensorium / Orientation: alert, oriented to person, oriented to place and oriented to time; Negative for orientation impaired, confused, lethargic or stuporous Speech: speech normal Motor Exam: strength 5/5 throughout; Negative for general weakness Psych mental status grossly normal Appearance: Negative for unkempt Mood & Affect: Negative for depressed or tearful Skin no wounds General Skin Exam: Negative for jaundice Lesions: no lesions Rashes: no rashes and No rashes noted STROKE Vital Signs/Narrative: Vital Signs Temp Pulse Pulse Pulse Pulse Resp BP 09/01/21 09:01 70 68 76 09/01/21 08:41 97.9 F 75 16 104/74 BP BP BP Pulse Ox 09/01/21 09:01 132/60 H 130/64 H 125/65 H 09/01/21 08:41 96 Inital Vital Signs reviewed: Yes MDM MDM MDM Narrative Medical decision making narrative: 81-year-old male with issues with his balance for last 3 weeks. Exam is benign lying in bed. CAT scan labs to be obtained. Consider stroke versus other etiologies. He also will be ambulated to assess his gait. Repeat exam unchanged nurses got the patient up ambulating with a cane he did reasonably well but he could tell he was having balance issues. Due to his CAT scan results he will be admitted for further work-up. Lab Data Attestation: I reviewed the patient's lab results. Lab results narrative: CBC normal white count of 7. H&H 12.9 and 40. Platelets 373. Electrolytes unremarkable gap of 4. BUN and creatinine of 12 and 1. Glucose 104. CAT scan is concerning for cerebellar stroke. Will need additional imaging such as an MRI. I discussed the CAT scan results with the radiologist. Labs: Laboratory Results - last 24 hr 09/01/21 09/01/21 09:10 09:10 WBC 7.5 RBC 4.60 Hgb 12.9 L Hct 40.8 MCV 88.7 MCH 28.0 MCHC 31.6 L RDW Std Deviation 50.8 H RDW Coeff of [place] 15.6 H Plt Count 373 MPV 9.6 Immature Gran % (Auto) 0.100 Neut % (Auto) 55.6 Lymph % (Auto) 30.0 [place] % (Auto) 10.9 H Eos % (Auto) 2.3 Baso % (Auto) 1.1 H Absolute Neuts (auto) 4.2 Absolute Lymphs (auto) 2.25 Nucleated RBC % 0 Sodium 136 Potassium 4.6 Chloride 105 Carbon Dioxide 27.0 Anion Gap 4 L BUN 12 Creatinine 1.03 Estim Creat Clear Calc 58.72 Est GFR (MDRD) Af Amer 89 Est GFR (MDRD) Non-Af 74 BUN/Creatinine Ratio 11.7 Glucose 104 Calcium 9.3 Radiography Diagnostic Testing: Clinical Impression(s) from Imaging Studies Brain CT 09/01/21 09:01 IMPRESSION: Suspect subacute infarcts of the left frontal lobe and the superior cerebellum. Correlation with MRI with contrast is recommended. No acute intracranial hemorrhage. Electronically Signed: Placido Holley MD at 9:39 EDT , ADDENDUM: 09/01/21 0956 IMPRESSION: Suspect subacute infarcts of the left frontal lobe and the superior cerebellum. Correlation with MRI with contrast is recommended. No acute intracranial hemorrhage. N.B. : The above Results were Read Back by Placido Holley MD to Sahntanu Sage MD, and understanding confirmed on 09/01/2021 09:49:30 (ET). Electronically Signed: Placido Holley MD at 9:39 EDT , Chest X-Ray 09/01/21 09:27 IMPRESSION: Possible right lung nodule and right hilar mass or lymphadenopathy. Correlation with CT of the chest with contrast is recommended. Electronically Signed: Placido Holley MD at 9:50 EDT , Chest x-ray, single view, interpreted by myself and radiologist shows right hilar nodule and the radiologist question of possible hilar density. May need further imaging. Rhythm Strip Rhythm Strip: Sinus Rhythm Rate: 70 Ectopy: None EKG Initial EKG: Attestation: I personally reviewed and interpreted this EKG as follows: Interpretation: Sinus Rhythm and No Acute Injury Pattern Comments: Normal sinus rhythm rate of 70 no acute signs of NH, nor ischemia nor dysrhythmia. Stroke Documentation Questions Stroke Team Activated: No Discharge Plan Triage Chief Complaint: Weakness ED Provider: Cesar Metz Dx/Rx/DC Orders Clinical Impression: Acute stroke due to ischemia, Ataxia, History of lupus, History of COPD Prescriptions: No Action multivitamin [Daily Multiple] 1 EACH tablet 1 ea PO DAILY RF: 0 aspirin 81 MG tablet,chewable 81 mg PO DAILY@0800 RF: 0 rosuvastatin 40 mg tablet 40 mg PO QHS RF: 0 losartan 50 mg tablet 50 mg PO DAILY RF: 0 Primary Care Provider: Charisse Benson Referrals: Charisse Benson MD [Primary Care Provider] - Disposition Disposition: Acute Care [facility]
[2021-09-01 09:21] LABS: Absolute Lymphocyte Count 2.25 X10^3/uL (0.83-4.51); Absolute Neutrophil Count 4.2 X10^3/uL (2.0-7.7); Basophil# 0.08 X10^3/uL; Basophil% 1.1 % (0-1); Eosinophil# 0.17 X10^3/uL; Eosinophils% 2.3 % (0-5); Hematocrit 40.8 % (40-54); Hemoglobin 12.9 g/dL (13.0-16.5); Lymphocyte # 2.25 X10^3/ul (0.83-4.51); Mean Corp Hgb Conc 31.6 g/dL (32-36); Mean Corpuscular Volume 88.7 fL (80-94); Mean Platelet Vol. 9.6 fl (6.2-12.0); Monocyte# 0.82 X10^3/uL; Monocyte% 10.9 % (0-10); NRBC Flagged by Analyzer 0 % (0-5); Neutrophil # 4.16 X10^3/uL (2.7-7.7); Neutrophil % 55.6 % (47-70); Platelet Count 373 K/mm3 (150-450); RBC Distribution Width CV 15.6 % (11.6-14.6); RBC Distribution Width SD 50.8 fl (35.1-43.9); White Blood Count 7.5 K/mm3 (4.4-11.0)
--- NOTE | 2021-09-01 09:27 | RAD_ITS ---
STUDY: X-RAY CHEST REASON FOR EXAM: Male, 81 years old. weakness TECHNIQUE: Single AP portable view of the chest. COMPARISON: None. FINDINGS: 1.5 cm nodular opacity projecting over the lower lung worrisome for pulmonary nodule and correlation with CT the chest with contrast is recommended. The lungs are clear and expanded. There is no demonstrated pleural abnormality. Normal size heart. Prominent hilum of the right lung worrisome for right hilar mass or lymphadenopathy. Normal visualized pulmonary arteries. Normal visualized aortic arch and descending thoracic aorta. Normal visualized thoracic spine. Normal visualized ribs, clavicles, and shoulders. There is no demonstrated abnormality of the visualized soft tissue structures of the upper abdomen. RAD/Chest 1 View (Portable) IMPRESSION: Possible right lung nodule and right hilar mass or lymphadenopathy. Correlation with CT of the chest with contrast is recommended. Electronically Signed: Placido Holley MD at 9:50 EDT ,
[2021-09-01 09:33] LABS: Anion Gap 4 (5-15); BUN 12 mg/dL (7-18); BUN/Creat Ratio 11.7 RATIO (10-20); Calcium,Total 9.3 mg/dL (8.5-10.1); Chloride 105 mmol/L (98-107); Creatinine, Serum 1.03 mg/dL (0.70-1.30); EST Glomerular Filtration Rate 74 mL/min (>60); Est Glom Filt Rate - Afr Amer 89 mL/min (>60); Estimated Creatinine Clearance 58.72 ml/min; Glucose 104 mg/dL (74-106); Potassium 4.6 mmol/L (3.5-5.1); Sodium Level 136 mmol/L (136-145)
--- NOTE | 2021-09-01 11:17 | PCM.HP.STD ---
HPI - General General Date of Admission: 09/01/21 Date of Service: 09/01/21 Chief Complaint: unsteadiness HPI Narrative ROBBIE MG, is a 81 M who presents with 3 weeks of unsteadiness. Has not felt well since appendectomy in April. 3 weeks ago he has been unsteady when getting up. He fell today which led to his hospitalization. 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 FOR[facility]LY [facility] Medical History COPD (chronic obstructive pulmonary disease) Hyperlipidemia Hypertension Lupus Melanoma Smoker Stroke/cerebrovascular accident Home Medications aspirin 81 mg PO DAILY@0800 10/20/16 [History Last Taken 05/09/21] multivitamin [Daily Multiple] 1 ea PO DAILY 10/20/16 [History Last Taken 05/09/21] losartan 50 mg PO DAILY 05/10/21 [History Last Taken 05/09/21] rosuvastatin 40 mg PO QHS 05/10/21 [History Last Taken 05/09/21] Allergy/AdvReac Type Severity Reaction Status Date / Time cefuroxime [From Ceftin] Allergy Rash Verified 09/01/21 08:45 latex Allergy Rash Verified 09/01/21 08:45 Family History (Updated 09/01/21 @ 11:[address] Juanpablo Ansari DO) Mother CVA (cerebral vascular accident) Brother CVA (cerebral vascular accident) Surgical History History of appendectomy Social History (Updated 09/01/21 @ 11:[address] Juanpablo Ansari DO) Smoking Status: Heavy Smoker (>10/day) alcohol intake: current alcohol intake frequency: 3 or more drinks per day ROS ROS Narrative All review of systems were negative except as mentioned above in the history of present illness and the other review of systems. Vital Signs Vital Signs Vital Signs: 09/01/21 08:41 09/01/21 09:01 09/01/21 09:16 Temperature 36.6 C Temperature Source Temporal Pulse Rate 75 Pulse Rate [Lying] 70 Pulse Rate [Sitting (for 1 minute prior to obtaining)] 68 Pulse Rate [Standing (for 1 minute prior to obtaining)] 76 Respiratory Rate 16 Respiratory Effort Normal Non-Labored Respiratory Pattern Normal Blood Pressure 104/74 Blood Pressure [Lying] 132/60 H Blood Pressure [Sitting (for 1 minute prior to obtaining)] 130/64 H Blood Pressure [Standing (for 1 minute prior to obtaining)] 125/65 H Blood Pressure Mean 84 Blood Pressure Mean [Lying] 84 Blood Pressure Mean [Sitting (for 1 minute prior to obtaining)] 86 Blood Pressure Mean [Standing (for 1 minute prior to obtaining)] 85 Pulse Ox 96 Oxygen Delivery Method Room Air 09/01/21 10:18 Temperature 36.4 C L Temperature Source Temporal Pulse Rate 75 Pulse Rate [Lying] Pulse Rate [Sitting (for 1 minute prior to obtaining)] Pulse Rate [Standing (for 1 minute prior to obtaining)] Respiratory Rate 18 Respiratory Effort Respiratory Pattern Blood Pressure 125/65 H Blood Pressure [Lying] Blood Pressure [Sitting (for 1 minute prior to obtaining)] Blood Pressure [Standing (for 1 minute prior to obtaining)] Blood Pressure Mean 85 Blood Pressure Mean [Lying] Blood Pressure Mean [Sitting (for 1 minute prior to obtaining)] Blood Pressure Mean [Standing (for 1 minute prior to obtaining)] Pulse Ox 96 Oxygen Delivery Method Room Air Weight Weight: 72.575 kg Body Mass Index (BMI) 22.3 Physical Exam Const alert General Appearance: cooperative HEENT normocephalic and head/scalp atraumatic Eyes PERRL and EOMs intact bilaterally Neck no lymphadenopathy Resp normal respiratory effort, no retractions, no use of accessory muscles and clear to auscultation bilaterally Cardio regular rate, regular rhythm, S1 normal heart sound and S2 normal heart sound GI normal to inspection, nondistended, normoactive bowel sounds, soft to palpation, non-tender and non-distended Extremity normal to inspection Skin no rashes or lesions noted and no wounds Neuro Neuro Narrative: ataxia on left Sensorium / Orientation: awake and alert Motor Exam: strength 5/5 throughout Psych affect normal Results Lab / Micro Data Attestation: I reviewed the patient's lab results. Result Diagrams: 09/01/21 09:10 09/01/21 09:10 Labs: Laboratory Results - last 24 hr 09/01/21 09:10: WBC 7.5, RBC 4.60, Hgb 12.9 L, Hct 40.8, MCV 88.7, MCH 28.0, MCHC 31.6 L, RDW Std Deviation 50.8 H, RDW Coeff of [place] 15.6 H, Plt Count 373, MPV 9.6, Immature Gran % (Auto) 0.100, Neut % (Auto) 55.6, Lymph % (Auto) 30.0, [place] % (Auto) 10.9 H, Eos % (Auto) 2.3, Baso % (Auto) 1.1 H, Absolute Neuts (auto) 4.2, Absolute Lymphs (auto) 2.25, Nucleated RBC % 0 09/01/21 09:10: Sodium 136, Potassium 4.6, Chloride 105, Carbon Dioxide 27.0, Anion Gap 4 L, BUN 12, Creatinine 1.03, Estim Creat Clear Calc 58.72, Est GFR (MDRD) Af Amer 89, Est GFR (MDRD) Non-Af 74, BUN/Creatinine Ratio 11.7, Glucose 104, Calcium 9.3 Rhythm Strip Rhythm Strip: Sinus Rhythm Rate: 70 Ectopy: None EKG Initial EKG: Attestation: I personally reviewed and interpreted this EKG as follows: Prior EKG tracings: available for review EKG Rhythm Intrepretation: Sinus Rhythm Radiology Impression Brain CT 09/01/21 09:01 IMPRESSION: Suspect subacute infarcts of the left frontal lobe and the superior cerebellum. Correlation with MRI with contrast is recommended. No acute intracranial hemorrhage. Electronically Signed: Placido Holley MD at 9:39 EDT Reading Location ID and State: [phone] / [employer] , Service support , ADDENDUM: 09/01/21 [id number] IMPRESSION: Suspect subacute infarcts of the left frontal lobe and the superior cerebellum. Correlation with MRI with contrast is recommended. No acute intracranial hemorrhage. N.B. : The above Results were Read Back by Placido Holley MD to Shantanu Sage MD, and understanding confirmed on 09/01/2021 09:49:30 (ET). Electronically Signed: Placido Holley MD at 9:39 EDT Reading Location ID and State: [id number] / [employer] , Service support , Chest X-Ray 09/01/21 09:27 IMPRESSION: Possible right lung nodule and right hilar mass or lymphadenopathy. Correlation with CT of the chest with contrast is recommended. Electronically Signed: Placido Holley MD at 9:50 EDT , Assessment & Plan Assessment/Plan (1) CVA (cerebral vascular accident): QUALIFIERS: CVA mechanism: unspecified Qualified Code(s): I63.9 - Cerebral infarction, unspecified PLAN: 1. CVA likely subacute to chronic. Onset may have been 3 weeks ago check MRI brain, MRA H/N, echo, PT OT, FLP Already on ASA. Add clopidogrel May need event monitor on discharge 2. HTN given that CVA was not acute, continue losartan 3. VTE prophylaxis: LMWH Charges/Coding Visit Charges Inpatient E&M: 62593 Init Hosp L3
--- NOTE | 2021-09-01 11:25 | ECHOD_ITS ---
Reason For Study: TIA/CVA Procedure This was a 2D Doppler, Color Flow transthoracic echocardiogram. Bubble study performed. Exam performed portable in patient room. Left Ventricle Normal left ventricle. The estimated ejection fraction is 55-60 %. Right Ventricle Normal systolic function. Atria Normal left atrium. Normal right atrium. Bubble contrast study negative for right to left interatrial shunt. Mitral Valve The mitral valve is structurally normal. No prolapse or stenosis seen. No mitral valve insufficiency. Tricuspid Valve Normal tricuspid valve. No tricuspid valve insufficiency. Aortic Valve Normal aortic valve. No aortic valve insufficiency. Pulmonic Valve The pulmonic valve is not well visualized. Great Vessels Normal aortic root. Pericardium/Pleural Moderate pericardial effusion. Medication Performed a rapid injection of agitated mix of 9 cc saline and 1cc air to assess for atrial septal defect. MMode/2D Measurements & Calculations LVIDd: 4.5 cm IVSd: 1.1 cm LVOT diam: 2.0 cm LVIDs: 2.5 cm LVPWd: 1.2 cm RVDd: 3.2 cm FS: 45.1 % LVOT area: 3.1 cm2 Ao root diam: 4.0 cm LAV(MOD-bp): 46.8 ml LA A4 area: 18.7 cm2 LA dimension: 3.5 cm LAV(MOD-bp) Indexed: 24.4 ml/m2 LAV(MOD-sp2): 37.0 ml LAV(MOD-sp4): 49.0 ml RA A4 area: 13.9 cm2 Time Measurements MV dec time: 0.26 sec Doppler Measurements & Calculations MV E max miguel a: 73.1 cm/sec Lat Peak E' Miguel A: 8.3 cm/sec Med Peak E' Miguel A: 8.3 cm/sec MV A max miguel a: 98.2 cm/sec E/E' lat: 8.8 E/E' med: 8.8 MV E/A: 0.74 MV V2 max: 113.5 cm/sec MV P1/2t max miguel a: 82.4 cm/sec Ao V2 max: 171.7 cm/sec MV max P.1 mmHg MV P1/2t: 82.8 msec Ao max P.8 mmHg MV V2 mean: 58.6 cm/sec MV dec slope: 291.4 cm/sec2 Ao V2 mean: 111.5 cm/sec MV mean P.6 mmHg Ao mean P.8 mmHg MV V2 VTI: 21.8 cm MVA(P1/2t): 2.7 cm2 Ao V2 VTI: 33.0 cm MVA(VTI): 3.5 cm2 TOSHA(I,D): 2.3 cm2 TOSHA(V,D): 2.1 cm2 LV V1 max: 120.5 cm/sec SV(LVOT): 75.5 ml PA V2 max: 123.3 cm/sec LV V1 max P.8 mmHg LV V1 mean P.8 mmHg LV V1 mean: 76.3 cm/sec LV V1 VTI: 24.7 cm ECHO/Echo Complete Interpretation Summary The estimated ejection fraction is 55-60 %. Moderate pericardial effusion with No Hemodynamic compremise Recommendation; 1.repeat echo in 3 month 2.consider pericardial window Ordering Physician: Juanpablo Ansari Referring Physician: Charisse Benson Performed By: Dedrick Shaffer RCS
--- NOTE | 2021-09-01 12:00 | MRI_ITS ---
STUDY: MRA NECK WITHOUT CONTRAST REASON FOR EXAM: Male, 81 years old. CVA TECHNIQUE: Source images were obtained, MIPs were performed. The study was performed unenhanced. COMPARISON: None. FINDINGS: RIGHT CAROTID ARTERIES: Normal right common carotid artery (CCA). Normal right common carotid bulb. Normal origin of the right internal carotid (ICA) artery without a hemodynamically significant stenosis. Normal visualized cervical portion of the right internal carotid artery. Normal origin of the right external carotid artery (ECA). LEFT CAROTID ARTERIES: Normal left common carotid artery (CCA). Normal left common carotid bulb. Normal origin of the left internal carotid (ICA) artery without a hemodynamically significant stenosis. Normal visualized cervical portion of the left internal carotid artery. Normal origin of the left external carotid artery (ECA). VERTEBRAL ARTERIES: Normal antegrade flow within the bilateral vertebral artery without a hemodynamically significant stenosis. MRI/MRA Neck without Contrast IMPRESSION: Normal bilateral cervical carotid and vertebral arteries. Electronically Signed: Placido Holley MD at 14:01 EDT ,
[2021-09-01 12:03] LABS: Troponin-I HS 57 pg/mL (3.0-78.0)
--- NOTE | 2021-09-01 12:19 | MRI_ITS ---
STUDY: MRA OF THE HEAD WITHOUT CONTRAST REASON FOR EXAM: Male, 81 years old. CVA TECHNIQUE: 3-D [id number] (TOF) imaging was performed with MIPs. The study was performed unenhanced. COMPARISON: None. FINDINGS: Normal bilateral petrous carotid arteries. Normal right cavernous carotid artery with a normal supraclinoid bifurcation. Normal left cavernous carotid artery with a normal supraclinoid bifurcation. Normal right A1 segments of the anterior cerebral artery. Normal left A1 segments of the anterior cerebral artery. Normal intact anterior communicating artery (ACOM). Normal bilateral A2 segments of the anterior cerebral arteries. Normal right M1 and M2 segments of the middle cerebral arteries, with a normal M1 bifurcation. Normal left M1 and M2 segments of the middle cerebral arteries, with a normal M1 bifurcation. Normal right posterior communicating artery (PCOM). Normal left posterior communicating artery (PCOM). Normal bilateral vertebral arteries. Normal basilar artery with a normal basilar bifurcation. The visualized bilateral superior cerebellar (SCA) arteries are normal. Normal bilateral P1, P2 and visualized P3 segments of the posterior cerebral arteries. There is no demonstrated aneurysm of the [place]. There is no major vessel occlusion or hemodynamically significant stenosis. There is no demonstrated abnormality of the visualized brain. MRI/MRA Head ONLY without Contrast IMPRESSION: Normal MRA of the head Electronically Signed: Placido Holley MD at 14:00 EDT ,
--- NOTE | 2021-09-01 12:29 | MRI_ITS ---
We are attempting to reach an attending provider to discuss findings. An addendum with communication details will be sent when the communication is complete. STUDY: MRI BRAIN WITHOUT CONTRAST REASON FOR EXAM: Male, 81 years old. CVA TECHNIQUE: Standardized multiplanar fat and water weighted pulse sequences were obtained. COMPARISON: CT earlier today FINDINGS: There is mild cerebral atrophy with widening of the extra-axial spaces and ventricular dilatation. There are a limited number of small white matter hyperintensities, distributed throughout the deep white matter tracts of the cerebral hemispheres, consistent with mild chronic white matter ischemic changes. There is a tiny subcentimeter hyperintensity of subcortical white matter of the gyrus in the posterior right parietal lobe which demonstrates restricted diffusion consistent with an acute/subacute white matter infarct. There are several other hyperintensities throughout the brain parenchyma particularly of the superior aspect of the cerebellum, left thalamus, left frontal lobe worrisome for edema. While these areas may represent encephalomalacia from prior infarcts underlying mass lesions are suspected particularly in the left frontal lobe in the right hemisphere of the cerebellum. Therefore, correlation with MRI with contrast is recommended. Normal T2* images of the brain without demonstrated susceptibility artifact. There is no demonstrated hemosiderin stain. Normal bilateral basal ganglia. Normal thalami. There is no extra-axial fluid accumulation. Normal flow voids within the major intracranial circulation suggesting patency by spin echo criteria. Normal sella turcica, pituitary gland, infundibular stalk, optic chiasm and hypothalamus. Normal tectal plate and pineal gland. Normal midbrain, larry and medulla. Normal cerebellum. Normal basal cisterns. Normal bilateral temporal bones. Normal bilateral internal auditory canals. No demonstrated orbital abnormality, within the constraints of a routine brain study. There is mucoperiosteal inflammatory disease of the paranasal sinuses consistent with mild chronic sinusitis. Normal calvarium and skull base. Normal visualized soft tissue structures. Normal visualized upper cervical spine. MRI/Brain without Contrast IMPRESSION: 1. Acute/subacute Small subcentimeter white matter infarct of a gyrus in the posterior right parietal lobe. 2. Suspect multiple lesions with surrounding edema worrisome for metastatic disease. Correlation with MRI with contrast is recommended. Electronically Signed: Placido Holley MD at 13:59 EDT ,
[2021-09-01] MEDS: Aspirin 325 MG Tablet PO (13:16)
--- NOTE | 2021-09-01 15:03 | MRI_ITS ---
STUDY: MRI BRAIN WITH CONTRAST REASON FOR EXAM: Male, 81 years old. CVA and possible metastatic disease TECHNIQUE: Standardized multiplanar fat and water weighted pulse sequences were obtained. IV 14 CC CLARISCAN was administered for the contrast portion of the examination. COMPARISON: MRI earlier today FINDINGS: There is mild cerebral atrophy with widening of the extra-axial spaces and ventricular dilatation. There are a limited number of small white matter hyperintensities, distributed throughout the deep white matter tracts of the cerebral hemispheres, consistent with mild chronic white matter ischemic changes. Normal bilateral basal ganglia. Normal thalami. There is no extra-axial fluid accumulation. Normal flow voids within the major intracranial circulation suggesting patency by spin echo criteria. Normal venous enhancement. There are multiple round solidly enhancing lesions of the brain parenchyma consistent with metastatic disease. Several these account for the hyperintensity seen on unenhanced MR consistent with surrounding vasogenic edema. These include a 1.5 cm lesion in the superior aspect of the right hemisphere of the cerebellum and a 1.8 cm necrotic lesion within the vermis of the cerebellum. Lesions are also seen in the right occipital lobe and temporal lobes, the left thalamus, measuring 0.8 cm in diameter, both parietal lobes and the left frontal lobe, measuring 8 mm in diameter but with a large amount of surrounding edema. Furthermore, there is a 5 mm round enhancing lesion within the gyrus of the posterior right parietal lobe corresponding to the area of restricted diffusion consistent with a metastasis. Therefore, infarct is felt to be unlikely. Normal sella turcica, pituitary gland, infundibular stalk, optic chiasm and hypothalamus. Normal tectal plate and pineal gland. Normal midbrain, larry and medulla. Normal cerebellum. Normal basal cisterns. Normal bilateral temporal bones. Normal bilateral internal auditory canals. No demonstrated orbital abnormality, within the constraints of a routine brain study. Normal visualized paranasal sinuses. Normal calvarium and skull base. Normal visualized soft tissue structures. Normal visualized upper cervical spine. MRI/Brain WITH Contrast IMPRESSION: MRI with contrast confirms metastatic disease including in the superior right parietal lobe without evidence of infarct. Electronically Signed: Placido Holley MD at 16:09 EDT ,
--- NOTE | 2021-09-01 17:27 | ONC.CONSULT ---
Assessment & Plan Assessment/Plan (1) Brain metastases: Status: Acute Code(s): C79.31 - Secondary malignant neoplasm of brain (2) Lung nodule: Status: Acute Code(s): R91.1 - Solitary pulmonary nodule Plan: Impression: -MRI with gadolinium enhancement revealed multiple brain metastases some with surrounding vasogenic edema. -Patient's only neurologic symptom is ataxia/imbalance. -Smoker. -Lung nodule. -Prior melanoma resection left ear. -Currently on aspirin and prophylactic Lovenox. -Overall clinical picture thus far consistent with possible metastatic lung cancer. Other diagnostic possibility although less likely is metastatic melanoma. -Discussed with patient, and his children further approach to work-up including CT scans of chest, abdomen pelvis and potential biopsy of primary tumor if discovered. Plan: -IV dexamethasone 6 mg every 6 hours. -CT scan chest, abdomen pelvis tonight. -Hold aspirin (no significant vascular disease observed in the major extra and intracranial vessels on MRA). -He will need radiation oncology/neurosurgery opinion regarding gamma knife versus whole brain radiation for management of brain metastases. -Discussed with Dr. Ansari. HPI Consult Data Date of Service:: 09/01/21 PCP / Referring Provider: Dr. Charisse Benson MD Attending: Dr. Juanpablo Ansari DO Chief Complaint Chief Complaint: Brain metastases History of Present Illness History of Present Illness: HPI: The patient is an 81-year-old male with a past medical history significant for hypertension, COPD, hyperlipidemia, possible lupus, smoking and prior stroke in 2017. He was brought to the ED by his for several week history of progressive weakness and increasing imbalance. He had no falls. Evidently neurologic exam was unremarkable in the ED. Initial noncontrast brain CT revealed mild cerebral atrophy with widening of the extra-axial spaces and ventricular dilation. There was decreased attenuation of the superior aspect of the cerebellum involving both hemispheres worrisome for possible edema from infarct. There was no hemorrhage. There was a 2 cm area of dilation decreased in attenuation within the left frontal lobe possibly contact center representative of subacute infarct. Chest x-ray notable for 1.5 cm nodular opacity projecting over the lower lung worrisome for pulmonary nodule. CT chest was recommended. MRI of the neck revealed normal bilateral cervical carotid and vertebral arteries. The MRI of the head was normal. Noncontrast enhanced MRI of the brain done this afternoon was concerning for acute/subacute small subcentimeter white matter infarct of the gyrus in the posterior right parietal lobe and potential multiple lesions with surrounding edema worrisome for metastatic disease. Subsequent MRI of the brain was performed. Results noted. Patient had hypercoagulation testing done in June of this year for unknown reasons.. No lupus anticoagulant was identified. Coagulation times were normal.Testing for anticardiolipin antibodies and beta-2 glycoprotein antibodies was not performed. Testing for protein C, S and Antithrombin were not performed. Factor V Leiden and prothrombin mutation were not checked. He endorses he smokes about 13 cigarettes a day. He has a chronic cough. No hemoptysis. Denies dyspnea at rest. Says he subjectively has wheezing and shortness of breath if he is doing heavier exertion. He does not use oxygen. He underwent emergency appendectomy in May of this year. Since then he says his appetite has been declining. No nausea. No abdominal pain, bloating or distention. Bowels have been moving on a regular basis. He has had no signs of GI bleeding. Currently on aspirin. The stroke in 2016 caused a left visual field defect. 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 Living Will: Yes [facility] Medical History COPD (chronic obstructive pulmonary disease) Hyperlipidemia Hypertension Lupus Melanoma Smoker Stroke/cerebrovascular accident Home Medications aspirin 81 mg PO DAILY@0800 10/20/16 [History Last Taken 09/01/21] multivitamin [Daily Multiple] 1 ea PO DAILY 10/20/16 [History Last Taken 08/31/21] losartan 50 mg PO DAILY 05/10/21 [History Last Taken 08/31/21] rosuvastatin 40 mg PO QHS 05/10/21 [History Last Taken 08/31/21] Allergy/AdvReac Type Severity Reaction Status Date / Time cefuroxime [From Ceftin] Allergy Rash Verified 09/01/21 08:45 latex Allergy Rash Verified 09/01/21 08:45 Family History Mother CVA (cerebral vascular accident) Brother CVA (cerebral vascular accident) Surgical History History of appendectomy Social History Smoking Status: Heavy Smoker (>10/day) alcohol intake: current alcohol intake frequency: 3 or more drinks per day ROS Constitutional Constitutional: Reports poor appetite and weight loss Musculoskeletal Musculoskeletal: Reports abnormal gait Neurologic Neurologic: Denies abnormal speech, behavior changes, confusion, dizziness, focal weakness, headache(s), numbness, other visual disturbances, tingling or other Physical Exam Const oriented x3 HEENT HEENT Narrative: Surgical defect left ear. Eyes no scleral icterus Neck no lymphadenopathy Lymph Lymphatic: no lymphadenopathy noted Resp normal respiratory effort Cardio regular rhythm GI soft to palpation and non-tender Extremity Extremity Narrative: No swelling or edema Neuro no focal motor deficits Neuro Narrative: Did not have him walk. Vital Signs Temperature 98.4 F 09/01/21 15:41 Temperature Source Oral 09/01/21 15:41 Pulse Rate 74 09/01/21 15:41 Respiratory Rate 16 09/01/21 15:41 Respiratory Effort Non-Labored 09/01/21 11:45 Respiratory Depth Normal 09/01/21 11:45 Respiratory Pattern Normal 09/01/21 11:45 Blood Pressure 130/69 H 09/01/21 15:41 Blood Pressure Mean 89 09/01/21 15:41 Blood Pressure Source Monitor 09/01/21 15:41 Blood Pressure Position Semi-Fowlers 09/01/21 15:41 Blood Pressure Location Right Arm 09/01/21 15:41 Pulse Ox 95 09/01/21 15:41 Oxygen Delivery Method Room Air 09/01/21 15:41 Laboratory Results - last 24 hr 09/01/21 09:10: WBC 7.5, RBC 4.60, Hgb 12.9 L, Hct 40.8, MCV 88.7, MCH 28.0, MCHC 31.6 L, RDW Std Deviation 50.8 H, RDW Coeff of [place] 15.6 H, Plt Count 373, MPV 9.6, Immature Gran % (Auto) 0.100, Neut % (Auto) 55.6, Lymph % (Auto) 30.0, [place] % (Auto) 10.9 H, Eos % (Auto) 2.3, Baso % (Auto) 1.1 H, Absolute Neuts (auto) 4.2, Absolute Lymphs (auto) 2.25, Nucleated RBC % 0 09/01/21 09:10: Sodium 136, Potassium 4.6, Chloride 105, Carbon Dioxide 27.0, Anion Gap 4 L, BUN 12, Creatinine 1.03, Estim Creat Clear Calc 58.72, Est GFR (MDRD) Af Amer 89, Est GFR (MDRD) Non-Af 74, BUN/Creatinine Ratio 11.7, Glucose 104, Calcium 9.3 09/01/21 11:35: Troponin I High Sens [address] 09/01/21 09:01 IMPRESSION: Suspect subacute infarcts of the left frontal lobe and the superior cerebellum. Correlation with MRI with contrast is recommended. No acute intracranial hemorrhage. Electronically Signed: Placido Holley MD at 9:39 EDT Reading Location ID and State: [id number] / [employer] , Service support , ADDENDUM: 09/01/21 0956 IMPRESSION: Suspect subacute infarcts of the left frontal lobe and the superior cerebellum. Correlation with MRI with contrast is recommended. No acute intracranial hemorrhage. N.B. : The above Results were Read Back by Placido Holley MD to Shantanu Sage MD, and understanding confirmed on 09/01/2021 09:49:30 (ET). Electronically Signed: Placido Holley MD at 9:39 EDT Reading Location ID and State: [id number] / [employer] Tel , Service support , Chest X-Ray 09/01/21 09:27 IMPRESSION: Possible right lung nodule and right hilar mass or lymphadenopathy. Correlation with CT of the chest with contrast is recommended. Electronically Signed: Placido Holley MD at 9:50 EDT Reading Location ID and State: 994 / [employer] , Service support , Neck MRA 09/01/21 12:00 IMPRESSION: Normal bilateral cervical carotid and vertebral arteries. Electronically Signed: Placido Holley MD at 14:01 EDT Reading Location ID and State: 994 / [employer] , Service support , Head MRA 09/01/21 12:19 IMPRESSION: Normal MRA of the head Electronically Signed: Placido Holley MD at 14:00 EDT Reading Location ID and State: 994 / [employer] Tel , Service support , Brain MRI 09/01/21 15:03 IMPRESSION: MRI with contrast confirms metastatic disease including in the superior right parietal lobe without evidence of infarct. Electronically Signed: Placido Holley MD at 16:09 EDT Reading Location ID and State: 994 / [employer] , Service support ,
[2021-09-01] MEDS: dexAMETHasone 10 MG/ML Vial 6 MG IV ×2 (18:06→21:43)
--- NOTE | 2021-09-01 19:01 | CT_ITS ---
INDICATION: brain metastasis EXAMINATION: CT Chest Abdomen And Pelvis W/ Contrast Injection TECHNIQUE: Images were obtained of the chest, abdomen and pelvis following IV contrast. A radiation dose optimization technique was used for this scan. IV Contrast dosage and agent: Oral and amp; IV Gastrografin and amp; 100mL [id number] COMPARISON: None. FINDINGS: Lungs: Emphysematous changes. Reticular opacities in the right lung apex. Right upper lobe suprahilar spiculated lung mass measuring approximately 5.1 x 3.4 x 3.3 cm. It causes narrowing of the right upper lobe segmental bronchi. Additional 1.4 cm and 8 mm masses in the right middle lobe. Mediastinum: The cardiomediastinal silhouette is not enlarged. Large pericardial effusion. There is a large mediastinal and right hilar lymph node conglomerate measuring at least 8.6 x 3.9 cm. Moderate aortic arch and coronary artery calcifications. No obvious filling defect seen within the visualized pulmonary arteries. Pleura: Unremarkable Liver: Unremarkable Gallbladder: Unremarkable Spleen: Unremarkable Pancreas: Unremarkable Adrenal Glands: Unremarkable Kidneys: Unremarkable Vasculature: Moderate aortoiliac atherosclerotic disease. GI Tract: Unremarkable Lymphadenopathy: None Peritoneum: No ascites. Bladder: Unremarkable Reproductive organs: The prostate is mildly enlarged. Bones/Soft tissues: There are diffuse degenerative changes of the spine. CT/CT Chest, Abd, Pel w/Contrast IMPRESSION: 5 cm right upper lobe lung mass concerning for malignancy with possible metastases to the right middle lobe as well as right hilar and mediastinal adenopathy. The mass causes narrowing of the right upper lobe segmental bronchi. Large pericardial effusion. Mild prostatomegaly. Correlate with PSA levels. Electronically Signed: Fantasma Maciel MD at 21:18 EDT ,
[2021-09-01] MEDS: 0.9% Saline Lock 10 ML Syringe IV (21:42)
[2021-09-01] MEDS: Atorvastatin Calcium 80 MG Tablet PO (21:42)
[2021-09-02] VITALS (11 sets, daily range): BP systolic 129–137; BP diastolic 64–71; PULSE 63–83; RESP 16–18; TEMP 36.5–36.7; O2SAT 85–99; BMI 21.2
[2021-09-02] MEDS: dexAMETHasone 10 MG/ML Vial 6 MG IV ×4 (03:46→22:32)
[2021-09-02] MEDS: 0.9% Saline Lock 10 ML Syringe IV ×3 (03:46→17:54)
[2021-09-02 06:41] LABS: Cholesterol 114 mg/dL (200); High Density Lipoprotein 49 mg/dL; Triglycerides 61 mg/dL; Very Low Density Lipoprotein 12 mg/dL (5-40)
--- NOTE | 2021-09-02 08:53 | PCM.PN.HOSP ---
Subjective Subjective Better. Patient has been up walking with therapy and feeling pretty steady. Anxious to go home. Objective Data Objective Data Vital Signs: Vital Signs Temp Pulse Resp BP Pulse Ox 36.5 C L 77 18 130/71 H 92 09/02/21 03:40 09/02/21 07:00 09/02/21 03:40 09/02/21 03:40 09/02/21 03:40 Oxygen Flow Rate (L/min) 2 Oxygen Delivery Method Nasal Cannula Weight: 69.1 kg Body Mass Index (BMI) 21.2 Intake & Output: Intake and Output for Last 24 Hours 08/31/21 09/01/21 09/02/21 23:59 23:59 23:59 Intake Total 1160 / 1160 120 / 120 Balance 1160 / 1160 120 / 120 Lab / Micro Data Result Diagrams: 09/01/21 09:10 09/01/21 09:10 Labs: Laboratory Results - last 24 hr 09/01/21 09:10: WBC 7.5, RBC 4.60, Hgb 12.9 L, Hct 40.8, MCV 88.7, MCH 28.0, MCHC 31.6 L, RDW Std Deviation 50.8 H, RDW Coeff of [place] 15.6 H, Plt Count 373, MPV 9.6, Immature Gran % (Auto) 0.100, Neut % (Auto) 55.6, Lymph % (Auto) 30.0, [place] % (Auto) 10.9 H, Eos % (Auto) 2.3, Baso % (Auto) 1.1 H, Absolute Neuts (auto) 4.2, Absolute Lymphs (auto) 2.25, Nucleated RBC % 0 09/01/21 09:10: Sodium 136, Potassium 4.6, Chloride 105, Carbon Dioxide 27.0, Anion Gap 4 L, BUN 12, Creatinine 1.03, Estim Creat Clear Calc 58.72, Est GFR (MDRD) Af Amer 89, Est GFR (MDRD) Non-Af 74, BUN/Creatinine Ratio 11.7, Glucose 104, Calcium 9.3 09/01/21 11:35: Troponin I High Sens 57 09/02/21 06:00: Triglycerides 61, Cholesterol 114, LDL Cholesterol 53, VLDL Cholesterol 12, HDL Cholesterol 49 Radiography Diagnostic Testing: Radiology Impression Brain CT 09/01/21 09:01 IMPRESSION: Suspect subacute infarcts of the left frontal lobe and the superior cerebellum. Correlation with MRI with contrast is recommended. No acute intracranial hemorrhage. Electronically Signed: Placido Holley MD at 9:39 EDT Reading Location ID and State: 994 / [employer] Tel , Service support , ADDENDUM: 09/01/21 0956 IMPRESSION: Suspect subacute infarcts of the left frontal lobe and the superior cerebellum. Correlation with MRI with contrast is recommended. No acute intracranial hemorrhage. N.B. : The above Results were Read Back by Placido Holley MD to Shantanu Sage MD, and understanding confirmed on 09/01/2021 09:49:30 (ET). Electronically Signed: Placido Holley MD at 9:39 EDT Reading Location ID and State: 994 / [employer] Tel , Service support , Chest X-Ray 09/01/21 09:27 IMPRESSION: Possible right lung nodule and right hilar mass or lymphadenopathy. Correlation with CT of the chest with contrast is recommended. Electronically Signed: Placido Holley MD at 9:50 EDT Reading Location ID and State: 994 / [employer] Tel , Service support , Neck MRA 09/01/21 12:00 IMPRESSION: Normal bilateral cervical carotid and vertebral arteries. Electronically Signed: Placido Holley MD at 14:01 EDT Reading Location ID and State: 994 / [employer] Tel , Service support , Head MRA 09/01/21 12:19 IMPRESSION: Normal MRA of the head Electronically Signed: Placido Holley MD at 14:00 EDT Reading Location ID and State: 994 / [employer] Tel , Service support , Brain MRI 09/01/21 12:29 IMPRESSION: 1. Acute/subacute Small subcentimeter white matter infarct of a gyrus in the posterior right parietal lobe. 2. Suspect multiple lesions with surrounding edema worrisome for metastatic disease. Correlation with MRI with contrast is recommended. Electronically Signed: Placido Holley MD at 13:59 EDT , ADDENDUM: 09/01/21 1548 IMPRESSION: 1. Acute/subacute Small subcentimeter white matter infarct of a gyrus in the posterior right parietal lobe. 2. Suspect multiple lesions with surrounding edema worrisome for metastatic disease. Correlation with MRI with contrast is recommended. N.B. : The above Results were Read Back by Placido Holley MD to Marce Bates RN, and understanding confirmed on 09/01/2021 15:41:08 (ET). Electronically Signed: Placido Holley MD at 13:59 EDT , Brain MRI 09/01/21 15:03 IMPRESSION: MRI with contrast confirms metastatic disease including in the superior right parietal lobe without evidence of infarct. Electronically Signed: Placido Holley MD at 16:09 EDT , Chest/Abdomen/Pelvis CT 09/01/21 19:01 IMPRESSION: 5 cm right upper lobe lung mass concerning for malignancy with possible metastases to the right middle lobe as well as right hilar and mediastinal adenopathy. The mass causes narrowing of the right upper lobe segmental bronchi. Large pericardial effusion. Mild prostatomegaly. Correlate with PSA levels. Electronically Signed: Fantasma Maciel MD at 21:18 EDT , Rhythm Strip Rhythm Strip: Sinus Rhythm Rate: 70 Ectopy: None Physical Exam Const alert and no apparent distress Resp normal respiratory effort, no retractions, no use of accessory muscles and clear to auscultation bilaterally Cardio regular rate, regular rhythm, S1 normal heart sound and S2 normal heart sound GI normal to inspection, nondistended, normoactive bowel sounds, soft to palpation, non-tender and non-distended Extremity normal to inspection Neuro Neuro Narrative: Muscling 5-5 in upper and lower extremities bilaterally. subtle ataxia in the left upper and left lower extremity but much improved from the 10th. Psych affect normal Assessment & Plan Assessment/Plan (1) CVA (cerebral vascular accident): QUALIFIERS: CVA mechanism: unspecified Qualified Code(s): I63.9 - Cerebral infarction, unspecified (2) Brain metastases: (3) Lung mass: PLAN: 1. CVA ruled out 2. Brain metastasis Symptomatically improving. Continue with the dexamethasone. Staging shows 5cm right upper lobe lung mass and possible mets to RML as well as right hilar and mediastinal adenopathy. Therefore suspect lung cancer primary with brain mets, less likely melanoma despite his history Will need biopsy. Preferably lung if feasible. Pulm consult DC'd ASA and clopidogrel in anticipation of Biopsy (likely not until next week) Seen by pulmonology and the plan is tentatively for bronchoscopy then. We will check coagulation studies per pulmonary request. 3. HTN given that CVA was not acute, continue losartan 4. History of CVA Aspirin and clopidogrel held in anticipation of biopsy. 5. VTE prophylaxis: LMWH. Hold on day of biopsy. Did discuss with the patient and several family members including his . Patient wishing to go home initially. I told him I would recommend staying until we could least get a biopsy and also observe him to make sure that he is having continued improvement symptomatically. I left them to talk it over and came back and the patient is agreeable to staying until Saturday or until when the biopsy could be performed. Charges/Coding Visit Charges Inpatient E&M: 29879 Subs Hosp L2
[2021-09-02] MEDS: Losartan Potassium 50 MG Tablet PO (09:06)
[2021-09-02] MEDS: Multivitamins,Therapeutic Tablet 1 TABLET PO (09:06)
[2021-09-02] MEDS: Enoxaparin 40 MG/0.4 ML Syringe SC (09:06)
--- NOTE | 2021-09-02 09:58 | CON.PCM.CC_ITS ---
Assessment & Plan Assessment/Plan (1) Lung mass: (2) Lung nodule: (3) Brain metastases: (4) Ataxia: PLAN: RECOMMENDATIONS: 1. Continue IV steroids for vasogenic edema 2. Check coagulation studies for possible bronchoscopy 3. Walking oximetry prior to discharge 4. Okay to discharge from pulmonary perspective with outpatient bronchoscopy 5. Possible bronchoscopy Saturday if still hospitalized 6. Bronchodilators as needed are likely sufficient 7. Please obtain coagulation studies prior to discharge if discharging today IMPRESSIONS: 1. Lung mass/lung nodule with probable brain metastasis in the setting of probable COPD Patient with extensive emphysematous changes on CT scan along with a 5 cm right hilar mass and a right upper lobe nodule. Clinical suspicion for the right upper lobe nodule with metastasis to mediastinal structures. Station 7 lymph node is severely enlarged and patient does have a enhancing lesion on MRI. Oncology has already been consulted. Patient will likely need a bronchoscopy for diagnosis. It is unclear if an EBUS will be necessary given the metastatic lesion in the head. Bronchoscopy can be completed as an outpatient if patient meets discharge criteria per the hospitalist. Will attempt to set up bronchoscopy early next week. Patient is aware that Dr. Mcgill may be performing the procedure. Did review the risks, benefits and alternatives and patient agrees to move forward with the procedure. Patient is wishing to be aggressive. It is unlikely patient will be a surgical candidate. Total discussion with the family and completion of documentation for 75 minutes 2. Ataxia secondary to probable brain metastasis with vasogenic edema Patient currently is on Decadron with improvement in symptoms. Agree with consultation PT/OT. Patient is aware that discharge may be delayed secondary to inability to ambulate, but defer to hospitalist. 3. Advanced age/active smoker/history of CVA/history of surgical anesthesia intolerance Complicates care, management, recovery and prognosis. Did discuss smoking cessation briefly, but patient appears to be precontemplative. Patient was encouraged to quit. HPI Consult Data Date of Consult: 09/02/21 HPI Narrative HPI Narrative: ROBBIE MG is an 81 M, with past medical history listed below, who presents to [facility] on 09/01/2021 secondary to balance issues, weakness and unintentional weight loss. Patient reportedly had had 3 weeks of balance issues, but reported no falls. Patient was using an assistive devices to help with balance. Patient had not reported any fevers, chills, nausea or vomiting. No diarrhea or dysuria been reported. Patient did not had any cyanosis or hemoptysis reported. Patient was unable to quantify his amount of weight loss. In the ER, patient was afebrile and normotensive. No tachycardia was noted. Orthostatics were negative and patient was saturating well on room air. Laboratory work-up was relatively unremarkable except for hemoglobin of 12.9. A CT of the head was obtained showing subacute infarcts of the left frontal and superior cerebellum with recommendations of a MRI. Chest x-ray showed a right lung nodule with right hilar mass. Given high concern for malignancy, oncology was consulted. Patient has subsequently had an MRI of the head showing vasogenic edema. The patient was admitted to the hospital for further evaluation. Since admission, patient feels subjectively slightly improved compared to previous. Patient has not been ambulating independently, but feels more confident with change of position in the bed. No new symptoms of been reported. Patient does have a long smoking history and currently smokes approximately half a pack per day. Patient does have a chronic cough for last several years. Patient states he does not use supplemental oxygen and has not seen a lung doctor in the past. Patient is not currently on any inhalers. Patient does have a history of melanoma in the past, but reportedly had not seen an onco logist. Patient does report he has had difficulty with previous surgeries. Patient states that he had some dry mouth and inability to swallow following an appendectomy in May of this year. Several family members were in the room during my evaluation including his , son, daughter and [id number]. Multiple questions were entertained and answered as current information allowed. Patient was unable to quantify the degree of weight loss. Review of systems otherwise negative from a cons titutional, HEENT, respiratory, cardiovascular, GI, genitourinary, musculoskeletal, skin, neurologic, psychiatric and hematologic system unless stated above. [facility] Medical History COPD (chronic obstructive pulmonary disease) Hyperlipidemia Hypertension Lupus Melanoma Smoker Stroke/cerebrovascular accident Home Medications aspirin 81 mg PO DAILY@0800 10/20/16 [History Last Taken 09/01/21] multivitamin [Daily Multiple] 1 ea PO DAILY 10/20/16 [History Last Taken 08/31/21] losartan 50 mg PO DAILY 05/10/21 [History Last Taken 08/31/21] rosuvastatin 40 mg PO QHS 05/10/21 [History Last Taken 08/31/21] Allergy/AdvReac Type Severity Reaction Status Date / Time cefuroxime [From Ceftin] Allergy Rash Verified 09/01/21 08:45 latex Allergy Rash Verified 09/01/21 08:45 Family History Mother CVA (cerebral vascular accident) Brother CVA (cerebral vascular accident) Surgical History History of appendectomy Social History Smoking Status: Heavy Smoker (>10/day) alcohol intake: current alcohol intake frequency: 3 or more drinks per day ROS ROS Narrative See HPI Physical Exam Const alert, oriented x3, no apparent distress and average body habitus General Appearance: cooperative HEENT normocephalic and head/scalp atraumatic Eyes PERRL and EOMs intact bilaterally Eyes Narrative: Uses glasses for reading Neck no lymphadenopathy Chest inspection of chest normal Chest: abnormal inspection of the chest increased A-P diameter and symmetrical chest wall rise; Negative for crepitus Resp no retractions and no use of accessory muscles Auscultation: diminished lung sounds; Negative for rales, rhonchi or wheezes Cardio regular rate, regular rhythm, S1 normal heart sound, S2 normal heart sound, no murmurs, no rub and no gallops GI normal to inspection, nondistended, normoactive bowel sounds, soft to palpation, non-tender and non-distended Extremity normal to inspection and no clubbing, cyanosis or edema Skin no rashes or lesions noted and no wounds Skin Narrative: Dermal atrophy noted Neuro Neuro Narrative: ataxia on left Sensorium / Orientation: awake and alert Motor Exam: strength 5/5 throughout Psych affect normal Lab / Micro Data Result Diagrams: 09/01/21 09:10 09/01/21 09:10 Labs: Laboratory Results - last 24 hr 09/01/21 11:35: Troponin I High Sens 57 09/02/21 06:00: Triglycerides 61, Cholesterol 114, LDL Cholesterol 53, VLDL Cholesterol 12, HDL Cholesterol 49 Rhythm Strip Rhythm Strip: Sinus Rhythm Rate: 70 Ectopy: None Radiology Impression Neck MRA 09/01/21 12:00 IMPRESSION: Normal bilateral cervical carotid and vertebral arteries. Electronically Signed: Placido Holley MD at 14:01 EDT Reading Location ID and State: [phone] / Seen Tel , Service support , Head MRA 09/01/21 12:19 IMPRESSION: Normal MRA of the head Electronically Signed: Placido Holley MD at 14:00 EDT Reading Location ID and State: [phone] / Seen Tel , Service support , Brain MRI 09/01/21 12:29 IMPRESSION: 1. Acute/subacute Small subcentimeter white matter infarct of a gyrus in the posterior right parietal lobe. 2. Suspect multiple lesions with surrounding edema worrisome for metastatic disease. Correlation with MRI with contrast is recommended. Electronically Signed: Placido Holley MD at 13:59 EDT Reading Location ID and State: [phone] / Seen Tel , Service support , ADDENDUM: 09/01/21 1548 IMPRESSION: 1. Acute/subacute Small subcentimeter white matter infarct of a gyrus in the posterior right parietal lobe. 2. Suspect multiple lesions with surrounding edema worrisome for metastatic disease. Correlation with MRI with contrast is recommended. N.B. : The above Results were Read Back by Placido Holley MD to Marce Bates RN, and understanding confirmed on 09/01/2021 15:41:08 (ET). Electronically Signed: Placido Holley MD at 13:59 EDT Reading Location ID and State: [phone] / Seen Tel , Service support , Brain MRI 09/01/21 15:03 IMPRESSION: MRI with contrast confirms metastatic disease including in the superior right parietal lobe without evidence of infarct. Electronically Signed: Placido Holley MD at 16:09 EDT , Chest/Abdomen/Pelvis CT 09/01/21 19:01 IMPRESSION: 5 cm right upper lobe lung mass concerning for malignancy with possible metastases to the right middle lobe as well as right hilar and mediastinal adenopathy. The mass causes narrowing of the right upper lobe segmental bronchi. Large pericardial effusion. Mild prostatomegaly. Correlate with PSA levels. Electronically Signed: Fantasma Maciel MD at 21:18 EDT , Charges/Coding Visit Charges Inpatient E&M: 82897 Init Hosp L3
--- NOTE | 2021-09-02 10:35 | CASEMGMT ---
Social Work Stroke has been ruled out, PHQ-9 does not need completed at this time. AMPARO Watson
--- NOTE | 2021-09-02 12:05 | CASEMGMT ---
RN CM Face to Face with patient for initial transition planning/care coordination assessment. RN CM introduced self and role at [facility]. Patient lying in bed, alert and oriented, family at bedside. Patient willing to participate in assessment and is able to answer all questions appropriately. Care providers, pharmacy, and demographics verified. Patient wishes to discharge home, denies need for home health at this time. Patient states he has no further needs or concerns at this time. CM to follow for discharge planning needs that may arise. PCP: Marcelino Specialists: Inocente Mannequin [facility]in[facility] Prescription Benefit: yes Living Will/HPOA: yes, Patricia Hernandez HPOA LNOK: , son, daughter Living Arrangements: Patient lives with in a raised [place] with 5 steps and railing to enter the home. Patient states he is independent at home. Transportation: self, family DME/HHC: Patient has cane and access to rollator if needed. Patient denies previous HHC or SNF. Disposition Plan: Patient to discharge home with family support and follow-up plans in place. Zabrina BOSTON, RN, CM
[2021-09-02] MEDS: Atorvastatin Calcium 80 MG Tablet PO (20:51)
[2021-09-03] VITALS (9 sets, daily range): BP systolic 106–121; BP diastolic 55–59; PULSE 55–72; RESP 14–17; TEMP 36.3–36.7; O2SAT 95–99; BMI 21.2
[2021-09-03] MEDS: dexAMETHasone 10 MG/ML Vial 6 MG IV ×4 (04:29→22:31)
--- NOTE | 2021-09-03 06:55 | PN.CC_ITS ---
Assessment & Plan Assessment/Plan (1) Lung mass: (2) Lung nodule: (3) Brain metastases: (4) Ataxia: PLAN: RECOMMENDATIONS: 1. Continue IV steroids for vasogenic edema 2. N.p.o. after midnight for possible bronchoscopy tomorrow 3. Walking oximetry prior to discharge 4. Consider monitoring blood sugars given dose of steroids 5. Possible bronchoscopy Saturday if still hospitalized 6. Bronchodilators as needed are likely sufficient IMPRESSIONS: 1. Lung mass/lung nodule with probable brain metastasis in the setting of probable COPD Patient with extensive emphysematous changes on CT scan along with a 5 cm right hilar mass and a right upper lobe nodule. Clinical suspicion for the right upper lobe nodule with metastasis to mediastinal structures. Station 7 lymph node is severely enlarged and patient does have a enhancing lesion on MRI. Oncology has already been consulted. Patient will likely need a bronchoscopy for diagnosis. It is unclear if an EBUS will be necessary given the metastatic lesion in the head. Bronchoscopy being requested as an inpatient to help facilitate care. Coagulation studies are normal and patient takes only an 81 mg aspirin, so possibly proceed with bronchoscopy tomorrow. 2. Ataxia secondary to probable brain metastasis with vasogenic edema Patient currently is on Decadron with improvement in symptoms. Agree with consultation PT/OT. Patient is aware that discharge may be delayed secondary to inability to ambulate, but defer to hospitalist. Could consider monitoring blood sugars given dose of Decadron. 3. Advanced age/active smoker/history of CVA/history of surgical anesthesia intolerance Complicates care, management, recovery and prognosis. Did discuss smoking cessation briefly, but patient appears to be precontemplative. Patient was encouraged to quit. Subjective Subjective Patient did well overnight. Patient has noted significant improvement in ataxia with steroid therapy. Patient denies any hemoptysis. Patient is requesting bronchoscopy as an inpatient. Objective Data Objective Data Vital Signs: Vital Signs Temp Pulse Resp BP Pulse Ox 36.3 C L 68 16 106/59 L 95 09/03/21 04:20 09/03/21 04:20 09/03/21 04:20 09/03/21 04:20 09/03/21 04:20 Oxygen Flow Rate (L/min) 1 Oxygen Delivery Method Room Air Weight: 69.1 kg Body Mass Index (BMI) 21.2 Intake & Output: Intake and Output for Last 24 Hours 09/01/21 09/02/2122 23:59 23:59 23:59 Intake Total 1160 / 1160 610 / 810 400 / 400 Output Total 350 / 350 Balance 1160 / 1160 610 / 460 50 / 50 Lab / Micro Data Result Diagrams: 09/01/21 09:10 09/01/21 09:10 Labs: Laboratory Results - last 24 hr 09/03/21 05:25: PT 13.0, INR 1.0, APTT 26.0 Radiography Diagnostic Testing: Radiology Impression Echocardiogram 09/01/21 11:25 Interpretation Summary The estimated ejection fraction is 55-60 %. Moderate pericardial effusion with No Hemodynamic compremise Recommendation; 1.repeat echo in 3 month 2.consider pericardial window Ordering Physician: Juanpablo Ansari Referring Physician: Charisse Benson Performed By: Dedrick Shaffer RCS Rhythm Strip Rhythm Strip: Sinus Rhythm Rate: 70 Ectopy: None Physical Exam Const alert, oriented x3, no apparent distress and average body habitus General Appearance: cooperative HEENT normocephalic and head/scalp atraumatic Eyes PERRL and EOMs intact bilaterally Eyes Narrative: Uses glasses for reading Neck no lymphadenopathy Chest inspection of chest normal Chest: abnormal inspection of the chest increased A-P diameter and symmetrical chest wall rise; Negative for crepitus Resp no retractions and no use of accessory muscles Auscultation: diminished lung sounds; Negative for rales, rhonchi or wheezes Cardio regular rate, regular rhythm, S1 normal heart sound, S2 normal heart sound, no murmurs, no rub and no gallops GI normal to inspection, nondistended, normoactive bowel sounds, soft to palpation, non-tender and non-distended Extremity normal to inspection and no clubbing, cyanosis or edema Skin no rashes or lesions noted and no wounds Skin Narrative: Dermal atrophy noted Neuro Neuro Narrative: Ataxia appears improved Sensorium / Orientation: awake and alert Motor Exam: strength 5/5 throughout Psych affect normal Charges/Coding Visit Charges Inpatient E&M: 29740 Subs Hosp L2
[2021-09-03] MEDS: Multivitamins,Therapeutic Tablet 1 TABLET PO (09:12)
[2021-09-03] MEDS: Losartan Potassium 50 MG Tablet PO (09:12)
--- NOTE | 2021-09-03 11:19 | CPS ---
Discussed with RN, Continuous pulse oximeter taken off patient
[2021-09-03] MEDS: 0.9% Saline Lock 10 ML Syringe IV ×2 (11:33→18:02)
--- NOTE | 2021-09-03 12:31 | PCM.PN.HOSP ---
Subjective Subjective Patient has no complaints this morning. I sat down and discussed the overall procedure with regards to the bronchoscopy and the plan following depending on pathology. Patient and family voiced understanding. I did tell them we do not as of yet have a time for the bronchoscopy as they will have to talk to the team tomorrow morning when they arrive. We also discussed the pericardial effusion and a cardiology consult that was pending. Objective Data Objective Data Vital Signs: Vital Signs Temp Pulse Resp BP Pulse Ox 97.8 F 70 16 121/55 H 96 09/03/21 09:08 09/03/21 09:08 09/03/21 09:08 09/03/21 09:08 09/03/21 11:19 Oxygen Flow Rate (L/min) 1 Oxygen Delivery Method Room Air Weight: 69.1 kg Body Mass Index (BMI) 21.2 Intake & Output: Intake and Output for Last 24 Hours 09/01/21 09/02/21 09/03/21 23:59 23:59 23:59 Intake Total 1160 / 1160 610 / 810 850 / 850 Output Total 350 / 350 Balance 1160 / 1160 610 / 460 500 / 500 Lab / Micro Data Result Diagrams: 09/01/21 09:10 09/01/21 09:10 Labs: Laboratory Results - last 24 hr 09/03/21 05:25: PT 13.0, INR 1.0, APTT 26.0 Rhythm Strip Rhythm Strip: Sinus Rhythm Rate: 70 Ectopy: None Physical Exam Const alert, oriented x3, no apparent distress, average body habitus and well nourished Constitutional Narrative: Elderly white male sitting up in bed, appears younger than stated age, family is at the bedside, patient appears nontoxic Exam Limitations: no limitations HEENT head/scalp atraumatic and moist oral mucous membranes HEENT Narrative: Mallampati 2, no thrush Head and Scalp: normocephalic Resp normal respiratory effort, no retractions, no use of accessory muscles and clear to auscultation bilaterally Resp Narrative: Diffusely diminished but clear Auscultation: Negative for crackles, rales, rhonchi or wheezes Cardio regular rate, regular rhythm, S1 normal heart sound, S2 normal heart sound, no murmurs, no rub, no gallops, no clicks and no JVD GI normal to inspection, nondistended, normoactive bowel sounds, soft to palpation, non-tender and non-distended; Negative for hepatosplenomegaly Extremity no clubbing, cyanosis or edema Peripheral Pulses: Yes pulses 2+ throughout Neuro oriented x3, CN's II-XII intact bilaterally, moves all extremities and no focal motor deficits Sensorium / Orientation: awake and alert Speech: speech normal Assessment & Plan Assessment/Plan (1) Lung mass: (2) Brain metastases: (3) Ataxia: (4) Pericardial effusion: PLAN: Lung mass -CT of the chest abdomen pelvis done for staging with brain metastasis noted on MRI -Shows 5 cm right upper lobe lung mass concerning for malignancy with possible metastasis to the right middle lobe as well as the hilar and mediastinal lymphadenopathy -Plan is for bronchoscopy tomorrow morning -Anticipate this is a primary for his brain lesions -Coags are normal -P.o. after midnight for bronchoscopy -Aspirin and Plavix on hold -Pulmonology is following Brain metastasis -MRI showed multiple solidly round enhancing lesions in the brain parenchyma suspicious for metastatic disease with vasogenic edema largest lesions are 1.8 and 1.5 cm but there are other much smaller lesions diffusely through the brain -Continue Decadron 6 mg every 6 hours -Await lung biopsies to delineate treatment -Per oncology's note patient will need radiation oncology/neurosurgery opinion regarding gamma knife radiation versus whole brain radiation for the management of his brain metastasis -Should be able to refer as an outpatient not requiring tertiary center involvement -Patient would like to remain here Pericardial effusion -Documented is large on CT--> reported as moderate on echo -Suspect malignant -No hemodynamic compromise and patient is clinically stable -Consult cardiology for recommendations History of stroke -No significant residual deficits -Aspirin and Plavix are on hold currently for bronchoscopy tomorrow COPD with ongoing tobacco abuse -As needed nebulizers -Recommend cessation Hypertension -Continue home losartan -Continue to monitor Hyperlipidemia -Continue home rosuvastatin DVT prophylaxis -Low molecular weight heparin -Hold per pulmonary preference for biopsies CODE STATUS -Full code Charges/Coding Visit Charges Inpatient E&M: 60596 Subs Hosp L2
--- NOTE | 2021-09-03 15:32 | PCM.CONS.C ---
Assessment & Plan Assessment/Plan (1) Lung mass: (2) Brain metastases: (3) Ataxia: (4) Pericardial effusion: PLAN: 81-year-old patient with abnormal CT chest with lung mass with MRI showed multiple brain metastasis and ataxia. Patient had history of COPD with ongoing tobacco abuse Hypertension Hyperlipidemia Cardiac consultation requested, patient has abnormal CT with large pericardial effusion Subsequent evaluation by echo showed moderate size pericardial effusion with no hemodynamic compromise And patient has been stable clinically from cardiac standpoint Cardiac care plan recommendation 1. Patient scheduled for bronchoscopy tomorrow with a lung biopsy 2. Antiplatelet with aspirin and Plavix is on hold 3. primary environmental remediation engineer Dr. Lowe, will follow up to discuss further plan for the pericardial effusion. HPI Consult Data Date of Consult: 09/03/21 HPI Narrative Reason for Consultation: Patient with lung mass, metastasis to brain and has a pericardial effusion HPI Narrative: ROBBIE MG, is a 81 M who presents [facility] Medical History (Updated 09/03/21 @ 12:[address] Ivette Parrish, ) Acute appendicitis with localized peritonitis without abscess Anal lesion Appendicitis COPD (chronic obstructive pulmonary disease) Hyperlipidemia Hypertension Lupus Melanoma Smoker Stroke/cerebrovascular accident Home Medications aspirin 81 mg PO DAILY@0800 10/20/16 [History Last Taken 09/01/21] multivitamin [Daily Multiple] 1 ea PO DAILY 10/20/16 [History Last Taken 08/31/21] losartan 50 mg PO DAILY 05/10/21 [History Last Taken 08/31/21] rosuvastatin 40 mg PO QHS 05/10/21 [History Last Taken 08/31/21] Allergy/AdvReac Type Severity Reaction Status Date / Time cefuroxime [From Ceftin] Allergy Rash Verified 09/01/21 08:45 latex Allergy Rash Verified 09/01/21 08:45 Family History Mother CVA (cerebral vascular accident) Brother CVA (cerebral vascular accident) Surgical History History of appendectomy Social History Smoking Status: Heavy Smoker (>10/day) alcohol intake: current alcohol intake frequency: 3 or more drinks per day Physical Exam Narrative Patient seen and evaluated bedside family at bedside and discussed with the nursing staff Alert orientated x3 Cardiovascular examination; regular rate with regular rhythm S1-S2 normal no murmurs no pericardial rub or gallop. Chest examination; clear to auscultation bilateral Risk Stratification Risk Stratification Applicable: No Objective Data Vital Signs: Vital Signs Temp Pulse Resp BP Pulse Ox 97.8 F 64 16 121/55 H 96 09/03/21 09:08 09/03/21 15:00 09/03/21 09:08 09/03/21 09:08 09/03/21 11:19 Oxygen Flow Rate (L/min) 1 Oxygen Delivery Method Room Air Weight: 152 lb 5.431 oz Body Mass Index (BMI) 21.2 Intake & Output: Intake and Output for Last 24 Hours 09/01/21 09/02/21 09/03/21 23:59 23:59 23:59 Intake Total 1160 / 1160 610 / 810 850 / 850 Output Total 350 / 350 Balance 1160 / 1160 610 / 460 500 / 500 Lab / Micro Data Result Diagrams: 09/01/21 09:10 09/01/21 09:10 Labs: Laboratory Results - last 24 hr 09/03/21 05:25: PT 13.0, INR 1.0, APTT 26.0 Rhythm Strip Rhythm Strip: Sinus Rhythm Rate: 70 Ectopy: None Cardiology Labs/Tests 09/03/21 05:25: PT 13.0, INR 1.0, APTT 26.0 Rhythm: Normal sinus rhythm
[2021-09-03] MEDS: Atorvastatin Calcium 80 MG Tablet PO (22:31)
[2021-09-04] VITALS (15 sets, daily range): BP systolic 101–115; BP diastolic 47–60; PULSE 44–67; RESP 14–17; TEMP 36.4–36.8; O2SAT 89–99; BMI 21.2
--- NOTE | 2021-09-04 | LUNB_PTH ---
PATIENT: ROBBIE MG LOC: [facility] U#:[id number] AGE/SX: 81/M ROOM: [facility] RE09/01/[address]: Dr. Robbie Ware MD : 1940 BED: 1 DIS: 09/04/2021 SPEC #: [id number] RECD: 09/04/21 13:33 STATUS: YELENA REQ #: [id number] NIRAJ: 09/04/21 00:[address]: Gilbert Mcgill DEPT: SURGICAL PATHOLOGY RECD BY: Odin Pressley ENTERED: 09/05/21 12:10 SP TYPE: LUNG BX OTHR DR: MD Dr. Charisse Zuleta MD Dr. Drew Abramovich, MD Dr. David Kittoe, MD Dr. Eric Jopperi, DO Dr. Elnora Spradling, MD Dr. Farouk Belal, MD Dr. Kathryn Lee, DO Dr. Lapman Lun, MD Dr. Mir Ali, MD Dr. Paul Masci, DO Christina Muller, NAILER HAND-C Tissues: Lung, NOS Procedures: Surgery Specimen Level IV HEADER OPERATION: Bronchoscopy with endobronchial biopsy and cytobrush PRE-OP DIAGNOSIS: Lung mass TISSUE SUBMITTED: Right upper lobe lung biopsy MICROSCOPIC DIAGNOSIS Right upper lobe of lung, endobronchial biopsy: Adenocarcinoma consistent with lung primary. See comment. AM:aurelia 09/06/2021 COMMENT Immunohistochemistry ([id number]) supports the above diagnosis. Please see corresponding cytology [id number]. Case has been reviewed in consultation with Dr. Craig who concurs with the above diagnosis. FRIEDA:KIMBERLY MICROSCOPIC DESCRIPTION Slides are reviewed. GROSS DESCRIPTION Received in fixative is one container labeled with the patient's name and designated right upper lobe lung biopsy. The specimen consists of multiple irregular fragments of light sanchez soft tissue that in aggregate measure 1 x 0.1 x 0.1 cm. The specimen is totally submitted in one cassette. / KIMBERLY:aurelia 09/05/2021 TC:0 CPT: 22196
--- NOTE | 2021-09-04 | FLU_PTH ---
PATIENT: ROBBIE MG LOC: [facility] U#:[id number] AGE/SX: 81/M ROOM: [facility] RE09/01/[address]: Dr. Robbie Ware MD : 1940 BED: 1 DIS: 09/04/2021 SPEC #: [id number] RECD: 09/04/21 13:33 STATUS: SOUZafar REQ #: [id number] NIRAJ: 09/04/21 00:[address]: Gilbert Mcgill DEPT: CYTOLOGY RECD BY: Odin Pressley ENTERED: 09/05/21 11:52 SP TYPE: Fluid OTHR DR: MD Dr. Charisse Zuleta MD Dr. Drew Abramovich, MD Dr. Derek Brown, DO Dr. David Kittoe, MD Dr. Eric Jopperi, DO Dr. Elnora Spradling, MD Dr. Farouk Belal, MD Dr. Kathryn Lee, DO Dr. Lapman Lun, MD Dr. Mir Ali, MD Dr. Paul Masci, DO Christina Muller, DYE TANK TENDER-C Tissues: A - Bronchus of right upper lobe B - Bronchus of right upper lobe C - Bronchus of right upper lobe Procedures: Special Stain Group II Surgery Specimen Level IV Cytospin Fluid Cytology Other Comments: @ Ordering doctor for SSII edited from to @ by SIERRA at 09/05/21 1210 @ Ordering doctor for SUIV edited from to @ by SIERRA at 09/05/21 1210 @ Ordering doctor for CYSPIN edited from to @ by SIERRA at 09/05/21 1210 @ Ordering doctor for CYOTHER edited from to @ by SIERRA at 09/05/21 1210 @ Submitting doctor edited from to @ cesario ESQUIVEL at 09/05/21 1210 HEADER OPERATION: Bronchoscopy with endobronchial biopsy and cytobrush PRE-OP DIAGNOSIS: Lung mass TISSUE SUBMITTED: A ? Right upper lobe wash, B ? Right upper lobe brush, C ? Right upper lobe slides x3 DIAGNOSIS CYTOLOGY A. Right upper lobe washings (cytospin and cell block): Positive for malignant cells consistent with adenocarcinoma. B. Right upper lobe brush (cell block): Negative for malignant cells. C. Right upper lobe brushings (smears): Positive for malignant cells consistent with adenocarcinoma. AM:aurelia 09/06/2021 COMMENT Please see corresponding surgical specimen [id number]. Case has been reviewed in consultation with Dr. Craig who concurs with the above diagnosis. IDC:SJ CYTOLOGY STUDY Slides are reviewed. CYTOLOGY GROSS A - Received is 35 ml of red turbid fluid labeled with the patient's name and and designated per the requisition as right upper lobe. Submitted for cytology preparation including cell block. B - Received is a metallic endoscopic cytobrush with adherent minute fragments of sanchez-red tissue brush in 2 ml of clear red fluid and labeled with the patient's name and and designated per the requisition as brush. The material is dislodged from the brush and submitted for cytology preparation including cell block. C - Received are three smears labeled with the patient's name and designated per the requisition as right upper lobe. Submitted for staining. / aurelia 09/05/2021 TC:0 CPT: 84580, 86422 x2, 46668 ADDENDUM ADDENDUM ADDENDUM ADDENDUM ADDENDUM ADDENDUM ADDENDUM ADDENDUM ADDENDUM ADDENDUM ADDENDUM ADDENDUM 09/26/2021 09:04 ADDENDUM 09/26/2021 09:04 ADDENDUM 09/26/2021 09:04 ADDENDUM 09/26/2021 09:04 ADDENDUM 09/26/2021 09:04 PD-L1 (KEYTRUDA) IMMUNOHISTOCHEMICAL ANALYSIS FROM [employer] RESULTS: Tumor proportion score: 2% / Positive [facility] NEXT GENERATION SEQUENCING GENE FUSION PANEL FROM [facility] INTERPRETATION: NEGATIVE: No pathogenic gene fusions detected involving ALK, NOEL, BRAF, CCND1, EGFR, FGFR1, FGFR2, FGFR3, MET, NRG1, NTRK1, NTRK2, NTRK3, PPARG, RAF1, RET, ROS1 or THADA. Please see complete report in e-chart or EMR
--- NOTE | 2021-09-04 | IMM_PTH ---
PATIENT: ROBBIE MG LOC: [facility] U#:[id number] AGE/SX: 81/M ROOM: [facility] RE09/01/[address]: Dr. Robbie Ware MD : 1940 BED: 1 DIS: 09/04/2021 SPEC #: [id number] RECD: 09/06/21 15:01 STATUS: YELENA REQ #: [id number] NIRAJ: 09/04/21 00:[address]: Gilbert Mcgill DEPT: IMMUNOHISTOCHEMISTRY RECD BY: Sonia Bennett ENTERED: 09/06/21 15:02 SP TYPE: IMMUNO OTHR DR: MD Dr. Charisse Zuleta MD Dr. Drew Abramovich, MD Dr. David Kittoe, MD Dr. Eric Jopperi, DO Dr. Elnora Spradling, MD Dr. Farouk Belal, MD Dr. Kathryn Lee, DO Dr. Lapman Lun, MD Dr. Mir Ali, MD Dr. Paul Masci, DO Roxanna Greer, INTERMEDIATE CARD TENDER-C Tissues: Right upper lobe of lung, NOS Procedures: NAPSIN A (add) CK7 (add) CK8 (add) P53 (add) TTF1 (add) Pankeratin (initial) PHYSICIAN & [place] [id number] SPECIMEN INFORMATION: Tissue Source: Right upper lobe lung biopsy Clinical Info: Lung mass Specimen Number: [id number] CPT code: 66046, 97008 x5 METHODOLOGY: Deparaffinized sections of prefer/formalin-fixed tissue or PAP/DQ stained slides are incubated with monoclonal/polyclonal antibodies/oligonucleotide probes. Localization is made via biotin free immunoperoxidase method. Appropriate controls are performed and reacted as expected. Results on target cell population are indicated in the following table: RESULTS: ANTIBODY / CLONE RESULT AE1-3 (AE1/AE3/PCK26) positive CK7 (OV-TL12/30) positive CK8 (94kyroQ26) positive TTF-1 (8G7G3/1) positive Napsin A (Rabbit Polyclonal) positive P53 (DO-7) positive, occasional cell These tests were developed and their performance characteristics determined by [facility]. They may not have been cleared or approved by the U.S. Food and Drug Administration. The FDA has determined that such clearance or approval is not necessary. The above immunohistochemical/dualISH markers are ordered and reviewed by the Pathologist. INTERPRETATION: Right upper lobe lung, biopsy: Adenocarcinoma consistent with lung primary. AM/am 09/07/21
[2021-09-04] MEDS: dexAMETHasone 10 MG/ML Vial 6 MG IV ×3 (05:21→16:55)
--- NOTE | 2021-09-04 07:25 | PCM.PN.INT ---
Assessment & Plan Assessment/Plan (1) Lung mass: PLAN: RECOMMENDATIONS: 1. Proceed with bronchoscopy with tentative plans for biopsy this afternoon at 1230. 2. The patient should remain n.p.o. for now. 3. Decadron per oncology. 4. Continue nicotine replacement therapy. IMPRESSIONS: 1. Right hilar lung mass concerning for malignancy The patient presented to the hospital with ataxia likely secondary to metastatic lesions noted on imaging. The patient's CT chest demonstrated a large right hilar lung mass concerning for malignancy. The patient does have an extensive tobacco abuse history. In light of the aforementioned findings noted on the CT scan, we will proceed with bronchoscopy today to facilitate a tissue diagnosis. If the patient does well post procedure, he can be discharged home from a pulmonary perspective to follow-up in our clinic later this week, once his final pathology report is available. The risks and benefits of proceeding with bronchoscopy were discussed with the patient. He is agreeable to proceed. 2. 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 The patient remains on Decadron per oncology recommendations. 3. History of CVA/chronic tobacco dependency/hypertension/hyperlipidemia Complicates care, management, recovery and prognosis. Continue home medications as indicated. I personally spent 3 minutes discussing the deleterious effects of continued tobacco use with the patient, including modalities which could be utilized to achieve a smoke-free lifestyle. Nicotine replacement therapy will be continued while patient is admitted to the hospital. This note was generated with [employer] dictation software. It may contain incorrect words, spelling, and punctuation that were not noted in checking the note before signing. Subjective Subjective The patient was seen and examined at the bedside this morning. Events from the last 24 hours have been reviewed. The patient is currently afebrile, hemodynamically stable and maintaining appropriate oxygen saturations on room air. I did speak with an endoscopy this morning. Patient is currently scheduled for bronchoscopy at 12:30 PM. Platelet count and coags have already been checked. Risks and benefits of the proposed procedure were discussed with the patient. He is agreeable to proceed. Objective Data Objective Data The patient's most recent lab work, culture data and imaging studies have all been personally reviewed. Surface echocardiogram demonstrated normal LV size and function with an ejection fraction of 55 to 60%. Vital Signs: Vital Signs Temp Pulse Resp BP Pulse Ox 97.9 F 52 L 14 101/60 99 09/04/21 05:19 09/04/21 07:00 09/04/21 05:19 09/04/21 05:19 09/04/21 05:19 Oxygen Flow Rate (L/min) 1 Oxygen Delivery Method Room Air Weight: 69.1 kg Body Mass Index (BMI) 21.2 Intake & Output: Intake and Output for Last 24 Hours 09/02/21 09/03/21 09/04/21 23:59 23:59 23:59 Intake Total 610 / 810 1090 / 1315 325 / 325 Output Total 350 / 350 Balance 610 / 460 740 / 965 325 / 325 Lab / Micro Data Attestation: I reviewed the patient's lab results. Result Diagrams: 09/01/21 09:10 09/01/21 09:10 Rhythm Strip Rhythm Strip: Sinus Rhythm Rate: 70 Ectopy: None Physical Exam Const alert and no apparent distress Constitutional Narrative: The patient's was present at the bedside as well. General Appearance: cooperative HEENT normocephalic, head/scalp atraumatic and moist oral mucous membranes Eyes PERRL, EOMs intact bilaterally and conjunctivae normal Neck supple General: trachea midline Chest inspection of chest normal Resp Auscultation: diminished lung sounds; Negative for rales, rhonchi or wheezes Cardio regular rate and regular rhythm GI normal to inspection, nondistended, normoactive bowel sounds Extremity no clubbing, cyanosis or edema Skin no rashes or lesions noted Neuro CN's II-XII intact bilaterally, moves all extremities and no focal motor deficits Psych cooperative and affect normal Charges/Coding Visit Charges Inpatient E&M: 70583 Subs Hosp L2 Behavior Interventions Behavior Intervention: 90492 Smoking Cessation 3-10 min
--- NOTE | 2021-09-04 08:55 | PN.HOSP_ITS ---
Subjective Subjective Patient is an 81-year-old gentleman admitted with ataxia. MRI of the brain obtained was concerning for metastatic disease Objective Data Objective Data Vital Signs: Vital Signs Temp Pulse Resp BP Pulse Ox 97.9 F 52 L 14 101/60 97 09/04/21 05:19 09/04/21 07:00 09/04/21 05:19 09/04/21 05:19 09/04/21 07:45 Oxygen Flow Rate (L/min) 1 Oxygen Delivery Method Room Air Weight: 69.1 kg Body Mass Index (BMI) 21.2 Intake & Output: Intake and Output for Last 24 Hours 09/02/21 09/03/21 09/04/21 23:59 23:59 23:59 Intake Total 610 / 810 1090 / 1315 325 / 325 Output Total 350 / 350 Balance 610 / 460 740 / 965 325 / 325 Lab / Micro Data Result Diagrams: 09/01/21 09:10 09/01/21 09:10 Rhythm Strip Rhythm Strip: Sinus Rhythm Rate: 70 Ectopy: None Physical Exam Narrative GENERAL: cooperative HEENT: Atraumatic; EYES; Anicteric, Normal Conjunctiva NECK; supple, normal thyroid, RESPIRATORY: Diminished to auscultation CARDIOVASCULAR: Regular S1 S2, GI: soft, normoactive bowel sounds, : No Renal angle tenderness; EXTREMITIES: No edema, no clubbing, MUSCULOSKELETAL: no muscle wasting NEURO: Awake; no lateralizing signs. SKIN: No Rash PSYCH; Flat affect Assessment & Plan Assessment/Plan (1) Lung mass: (2) Brain metastases: (3) Ataxia: (4) Pericardial effusion: PLAN: Patient is an 81-year-old gentleman admitted with ataxia. MRI of the brain obtained was concerning for metastatic disease 1. Ataxia ? Secondary to brain mets. Patient was found to have lung mass for which bronch oscopy has been planned. Patient has been managed with Decadron 2. Lung mass ? CT of the chest and abdomen demonstrated 5 cm right upper lobe mass concerning for malignancy with metastasis to the right middle lobe as well as hilar lymphadenopathy. Pulmonary medicine consulted patient is scheduled to undergo bronchoscopy with biopsy 3. Pericardial effusion ? 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 Cardiology consulted notes and recommendations reviewed 4. Previous history of CVA ? With no residual deficit 5. COPD ? Aerosol treatments as needed 6. Dyslipidemia -Patient is on statin therapy, continued at home dose 7. Hypertension - Blood pressure controlled, home medications continued with dose adjustment as needed 8. Tobacco dependence - Counseled on cessation, offered nicotine patch for tobacco cravings 9. DVT prophylaxis ? Low molecular weight heparin currently on hold for his procedure CODE STATUS full code Charges/Coding Visit Charges Inpatient E&M: 71269 Subs Hosp L2
[2021-09-04] MEDS: 0.9% Saline Lock 10 ML Syringe IV ×2 (10:23→16:56)
--- NOTE | 2021-09-04 11:47 | NURSING ---
Pt left the floor via bed for procedure. Family at the bedside and aware.
[2021-09-04] MEDS: Lidocaine 2% Jelly 1 APPLIC Tube (12:43)
[2021-09-04] MEDS: Lidocaine 2% (5ml sdv) 5 ML VIAL.MPF (12:43)
--- NOTE | 2021-09-04 13:12 | OP.BRONCH_ITS ---
Patient Name: Kael Hernandez Procedure Date: 09/04/2021 10:58 AM Date of : 1940 Age: 81 Procedure: Bronchoscopy Indications: Right upper lobe mass Providers: Gilbert Mcgill MD Medicines: See the Anesthesia note for documentation of the administered medications Complications: No immediate complications Procedure: Pre-Anesthesia Assessment: - A History and Physical has been performed. Patient meds and allergies have been reviewed. The risks and benefits of the procedure and the sedation options and risks were discussed with the patient. All questions were answered and informed consent was obtained. Patient identification and proposed procedure were verified prior to the procedure by the physician and the nurse in the procedure room. Mental Status Examination: alert and oriented. Airway Examination: normal oropharyngeal airway. Respiratory Examination: poor air movement. CV Examination: normal. ASA Grade Assessment: III - A patient with severe systemic disease. After reviewing the risks and benefits, the patient was deemed in satisfactory condition to undergo the procedure. The anesthesia plan was to use monitored anesthesia care (MAC). Immediately prior to administration of medications, the patient was re-assessed for adequacy to receive sedatives. The heart rate, respiratory rate, oxygen saturations, blood pressure, adequacy of pulmonary ventilation, and response to care were monitored throughout the procedure. The physical status of the patient was re-assessed after the procedure. After I obtained informed consent, the scope was passed under direct vision. Throughout the procedure, the patient's blood pressure, pulse, and oxygen saturations were monitored continuously. The bronchoscope was introduced through the mouth and advanced to the tracheobronchial tree. The procedure was accomplished without difficulty. The patient tolerated the procedure well. Findings: The nasopharynx/oropharynx appears normal. The larynx appears normal. The vocal cords appear normal. The subglottic space is normal. The trachea is of normal caliber. The janak is sharp. The tracheobronchial tree of the left lung was examined to at least the first subsegmental level. Bronchial mucosa and anatomy in the left lung are normal; there are no endobronchial lesions, and no secretions. Right Lung Abnormalities: A partially obstructing mass was found in the anterior segment of the right upper lobe (B3). The mass was endobronchial. The lesion was not traversed. Endobronchial biopsies were performed in the right upper lobe using forceps and sent for routine cytology. Three samples were obtained. The lesion itself was highly vascular and bled easily, which significantly obstructed visualization for subsequent biopsies. Guided brushings were obtained in the right upper lobe with a cytology brush and sent for routine cytology. One sample was obtained. Impression: - Right upper lobe mass - The airway examination of the left lung was normal. - An endobronchial mass was found in the anterior segment of the right upper lobe (B3). This lesion is suspicious for malignancy. - An endobronchial biopsy was performed. - Brushings were obtained. Recommendation: - Await biopsy results. Procedure Code(s): --- Professional --- 07166, Bronchoscopy, rigid or flexible, including fluoroscopic guidance, when performed; with bronchial or endobronchial biopsy(s), single or multiple sites 58640, Bronchoscopy, rigid or flexible, including fluoroscopic guidance, when performed; with brushing or protected brushings Diagnosis Code(s): --- Professional --- R91.8, Other nonspecific abnormal finding of lung field J98.9, Respiratory disorder, unspecified CPT copyright 2017 [employer]. All rights reserved. The codes documented in this report are preliminary and upon city comptroller review may be revised to meet current compliance requirements. DO Gilbert Weiss MD 09/04/2021 1:12:04 PM This report has been signed electronically. Number of Addenda: 0 Note Initiated On: 09/04/2021 10:58 AM
[2021-09-04 13:33] LABS: Cytology, Washings SEE PATHOLOGY REPORT
--- NOTE | 2021-09-04 14:34 | DS.PCM_ITS ---
Providers Date of Admission: 09/01/21 Primary Care Physician: Dr. Charisse Benson MD Consultations 09/01/21 16:37 Consult: Oncology/Hematology Routine Consulting Provider: BARBRA Hem/Onc Christa Reason for Consult: brain metatasis EMERGENT Consult: No Notified: Yes Date Notified: 09/01/21 Time Notified: 16:39 Method of Notification: Verbal 09/02/21 10:25 Consult: Community Organization Worker / Pulmonary Medicine Routine Consulting Provider: [facility] Reason for Consult: lung mass EMERGENT Consult: No Notified: Yes Date Notified: 09/02/21 Time Notified: 10:25 Method of Notification: Text 09/03/21 07:58 Consult: Cardiology Routine Consulting Provider: Leyda Saravia Reason for Consult: large pericardial effusion-suspect maligant EMERGENT Consult: No Notified: Yes Date Notified: 09/03/21 Time Notified: 08:47 Method of Notification: Verbal Reason For Visit: CVA, ATAXIA, COPD HX, SLE HX Diagnosis Discharge Diagnosis (1) Lung mass: Status: Acute Code(s): R91.8 - Other nonspecific abnormal finding of lung field (2) Brain metastases: Status: Acute Code(s): C79.31 - Secondary malignant neoplasm of brain (3) Ataxia: Status: Acute Code(s): R27.0 - Ataxia, unspecified (4) Pericardial effusion: Status: Acute Code(s): I31.3 - Pericardial effusion (noninflammatory) Medications at Discharge Home Medications multivitamin [Daily Multiple] 1 ea PO DAILY 10/20/16 losartan 50 mg PO DAILY 05/10/21 rosuvastatin 40 mg PO QHS 05/10/21 dexamethasone [Decadron] 6 mg PO Q6H 7 Days #28 tab 09/04/21 Hospital Course Summary of Care Provided Minutes Spent on Discharge: 35 Hospital Course: Patient is an 81-year-old gentleman admitted with ataxia. MRI of the brain obtained was concerning for metastatic disease 1. Ataxia ? Secondary to brain mets. Patient was found to have lung mass for which bronchoscopy has been planned. Patient has been managed with Decadron ? Patient was discharged home on Decadron Case discussed with Dr. Malone he will follow-up with the patient for initiation of gamma knife radiation 2. Lung mass ? CT of the chest and abdomen demonstrated 5 cm right upper lobe mass concerning for malignancy with metastasis to the right middle lobe as well as hilar lymphadenopathy. Pulmonary medicine consulted patient is scheduled to undergo bronchoscopy with biopsy -Patient underwent lung biopsy results pending at time of discharge. Patient to follow-up with pulmonary medicine for the result. 3. Pericardial effusion ? 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 Cardiology consulted notes and recommendations reviewed ? Case was discussed with Dr. Prince patient to be referred to [facility] for consideration for possible pericardial window. At the time of discharge patient was physiologically and hemodynamically stable 4. Previous history of CVA ? With no residual deficit 5. COPD ? Aerosol treatments as needed 6. Dyslipidemia -Patient is on statin therapy, continued at home dose 7. Hypertension - Blood pressure controlled, home medications continued with dose adjustment as needed 8. Tobacco dependence - Counseled on cessation, offered nicotine patch for tobacco cravings 9. DVT prophylaxis ? Low molecular weight heparin currently on hold for his procedure CODE STATUS full code Physical Exam Narrative GENERAL: cooperative HEENT: Atraumatic; EYES; Anicteric, Normal Conjunctiva NECK; supple, normal thyroid, RESPIRATORY: Diminished to auscultation CARDIOVASCULAR: Regular S1 S2, GI: soft, normoactive bowel sounds, : No Renal angle tenderness; EXTREMITIES: No edema, no clubbing, MUSCULOSKELETAL: no muscle wasting NEURO: Awake; no lateralizing signs. SKIN: No Rash PSYCH; Flat affect Weight / BMI Weight Weight: 69.1 kg Body Mass Index (BMI) 21.2 ABG / Lab / Microbiology Data Result Diagrams: 09/01/21 09:10 09/04/21 15:00 D/C Instructions Discharge Diet: No restrictions Discharge Activity: Return to Normal Activity Call your doctor if you observe: Fever of 101 or Higher, Shortness of breath, Fainting spells and Chest pain Meaningful Use Info Meaningful Use Diagnoses (Choose all that apply): None applicable Discharge Plan Admission Admit Date/Time: 09/01/21 11:10 Attending Provider: Kael Ware Primary Care Provider: Charisse Benson Consulting Providers: Augustin Chu ; Shanice Sher ; Becca Sanchez ; Terrence Ashton ; Calos Malone ; Jamie Clark ; Gilbert Mcgill ; Roxanna Greer NP ; Juanpablo Ansari ; Leyda Saravia ; Ivette Parrish Discharge Orders/Prescriptions Prescriptions: New dexamethasone [Decadron] 6 mg tablet 6 mg PO Q6H 7 Days Qty: 28 RF: 0 Continued multivitamin [Daily Multiple] 1 EACH tablet 1 ea PO DAILY RF: 0 rosuvastatin 40 mg tablet 40 mg PO QHS RF: 0 losartan 50 mg tablet 50 mg PO DAILY RF: 0 Discontinued aspirin 81 MG tablet,chewable 81 mg PO DAILY@0800 RF: 0 Referrals / Follow Up: Charisse Benson MD [Primary Care Provider] - Within 2 Weeks Gilbert Mcgill DO [STAFF PHYSICIAN] - In 1 Week (within 3-5 days ) Calos Malone DO [STAFF PHYSICIAN] - In 1 Day Disposition Disposition (needs filled in before D/C Order can be placed): Home, Self Care Charges/Coding Visit Charges Inpatient E&M: 17119 Disch Hosp
--- NOTE | 2021-09-04 15:59 | NURSING ---
Pt was NPO this morning for procedure. When pt returned to the floor, pt did not want his AM medications.
[2021-09-04 16:04] LABS: BNP,B-Type NATRIURETIC PEPTIDE 363.4 pg/mL (0-100)
[2021-09-04 16:14] LABS: ALB/GLOB Ratio 0.8 RATIO (0.9-2.4); AST(SGOT) 22 U/L (15-37); Alanine Aminotransfer ALT/SGPT 44 U/L (16-61); Albumin, Serum 3.2 g/dL (3.2-5.0); Alkaline Phosphatase 66 U/L (45-117); Anion Gap 7 (5-15); BUN 38 mg/dL (7-18); BUN/Creat Ratio 39.5 RATIO (10-20); Chloride 109 mmol/L (98-107); Creatinine, Serum 0.96 mg/dL (0.70-1.30); EST Glomerular Filtration Rate 80 mL/min (>60); Est Glom Filt Rate - Afr Amer 97 mL/min (>60); Estimated Creatinine Clearance 59.98 ml/min; Globulin 3.9 g/dL (2.2-4.2); Glucose 129 mg/dL (74-106); Magnesium 2.3 mg/dL (1.6-2.6); Potassium 4.5 mmol/L (3.5-5.1); Protein, Total 7.1 g/dL (6.4-8.2); Sodium Level 140 mmol/L (136-145)
== END 2021-09-04 17:23 | disposition home or self-care (01) | DRG 54 ==
LOC: ED 10:24 → PCU 10:45
PROVIDERS: Internal Medicine Critical Care Medicine; Emergency Provider Emergency Medicine; PCP Internal Medicine; Visit Provider Internal Medicine
PROC: 0BJ08ZZ Inspection of Tracheobronchial Tree, Via Natural or Artificial Opening Endoscopic (ICD-10-PCS; CPT 31622; principal; 2021-09-04 12:15)
DX: C79.31 Secondary malignant neoplasm of brain (principal); G93.6 Cerebral edema; G32.81 Cerebellar ataxia in diseases classified elsewhere; I31.3 Pericardial effusion (noninflammatory); C34.11 Malignant neoplasm of upper lobe, right bronchus or lung; J91.0 Malignant pleural effusion; M32.9 Systemic lupus erythematosus, unspecified; E78.5 Hyperlipidemia, unspecified; F17.210 Nicotine dependence, cigarettes, uncomplicated; J44.9 Chronic obstructive pulmonary disease, unspecified; I10 Essential (primary) hypertension; R59.0 Localized enlarged lymph nodes; Z79.02 Long term (current) use of antithrombotics/antiplatelets; Z79.82 Long term (current) use of aspirin; Z79.899 Other long term (current) drug therapy; Z86.73 Personal history of transient ischemic attack (TIA), and cerebral infarction without residual deficits
CPT/HCPCS: 36415; 70450; 70544; 70547; 70551; 70552; 71045; 71260; 74177; 80048; 80053; 80061; 83735; 83880; 84484; 85025; 85610; 85730; 88108; 88161; 88305; 88313; 88341; 88342; 93005; 93306; 94762; 97162; 97165; 97802; 99285; 99406; A9575; Q9957; Q9967; A4216; J2405

== ENCOUNTER → 2021-09-11 | Outpatient (CLI) | payer MEDICARE, OTHER, SELFPAY ==
[2021-09-11 13:24] LABS: ALB/GLOB Ratio 0.9 RATIO (0.9-2.4); AST(SGOT) 21 U/L (15-37); Alanine Aminotransfer ALT/SGPT 101 U/L (16-61); Albumin, Serum 3.3 g/dL (3.2-5.0); Alkaline Phosphatase 63 U/L (45-117); Anion Gap 6 (5-15); BUN 27 mg/dL (7-18); BUN/Creat Ratio 25.7 RATIO (10-20); Calcium,Total 9.1 mg/dL (8.5-10.1); Chloride 103 mmol/L (98-107); Creatinine, Serum 1.05 mg/dL (0.70-1.30); EST Glomerular Filtration Rate 72 mL/min (>60); Est Glom Filt Rate - Afr Amer 87 mL/min (>60); Globulin 3.8 g/dL (2.2-4.2); Glucose 117 mg/dL (74-106); Magnesium 2.5 mg/dL (1.6-2.6); Protein, Total 7.1 g/dL (6.4-8.2); Sodium Level 137 mmol/L (136-145)
== END | disposition home or self-care (01) ==
LOC: LABSPEC 11:20
PROVIDERS: PCP Internal Medicine; Visit Provider Internal Medicine Hematology & Oncology
DX: C34.11 Malignant neoplasm of upper lobe, right bronchus or lung (principal); C77.1 Secondary and unspecified malignant neoplasm of intrathoracic lymph nodes; C79.31 Secondary malignant neoplasm of brain; I31.3 Pericardial effusion (noninflammatory); E03.9 Hypothyroidism, unspecified
CPT/HCPCS: 80053; 83735

== ENCOUNTER 2021-09-16 09:53 | Emergency (ER) | payer MEDICARE, OTHER, SELFPAY ==
[2021-09-16 09:53] VITALS: BP 148/78; PULSE 88; RESP 16; TEMP 36.2; O2SAT 91; BMI 21.6
--- NOTE | 2021-09-16 10:22 | EKG12_ITS ---
Test Reason : Blood Pressure : / mmHG Vent. Rate : 076 BPM Atrial Rate : 076 BPM P-R Int : 134 ms QRS Dur : 086 ms QT Int : 374 ms P-R-T Axes : 070 095 084 degrees QTc Int : 420 ms Normal sinus rhythm Low voltage QRS (Limb Leads) Poor R wave progression Nonspecific ST-segment abnormality Confirmed by KORIN ZAMORANO, NILSON ([id number]), film editor supervisor BRUCE FRANCO ([id number]) on 09/19/2021 8:13:24 AM Referred By: KECIA Confirmed By:NILSON LANGLEY MD
--- NOTE | 2021-09-16 10:23 | EX.ED.DYSGE1 ---
HPI History of Present Illness Chief Complaint: General Illness Informant: patient and family Onset/Context/Timing Onset: Days Context: Gradual Onset Current Severity: Moderate Maximum Severity: Moderate Narrative Narrative: Patient present secondary to generalized weakness. 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 He had his first chemotherapy treatment 5 days ago. He did lose his balance and fall that same day. He had x-rays that were unremarkable. 2 days later he started developing generalized weakness and essentially no interest in eating or drinking. He states when he does force himself to eat he will vomit up clear mucus. He reports chills but no measured fever. No diarrhea. He states he is still urinating normally. 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 Smoker Stroke/cerebrovascular accident Home Medications multivitamin (Daily Multiple) 1 ea PO DAILY multivitamin 10/20/16 [History Last Taken 08/31/21] losartan 50 mg tablet 50 mg PO DAILY HTN 05/10/21 [History Last Taken 08/31/21] rosuvastatin 40 mg tablet 40 mg PO QHS cholesterol 05/10/21 [History Last Taken 08/31/21] dexamethasone 6 mg tablet (Decadron) 6 mg PO Q6H 7 days #28 tabs 09/04/21 [Rx Last Taken Unknown] folic acid 1 mg tablet 1 mg PO DAILY 09/08/21 [History Last Taken Unknown] ondansetron HCl 4 mg tablet 4 mg PO Q8H 09/08/21 [History Last Taken Unknown] Allergy/AdvReac Type Severity Reaction Status Date / Time cefuroxime [From Ceftin] Allergy Rash Verified 09/08/21 11:16 latex Allergy Rash Verified 09/08/21 11:16 Family History Mother CVA (cerebral vascular accident) Brother CVA (cerebral vascular accident) Surgical History History of appendectomy Social History Smoking Status: Current every day smoker tobacco type: cigarettes Tobacco: How many years used: 65 Electronic Cigarette Use: not used second hand exposure: No alcohol intake: current alcohol intake frequency: 3 or more drinks per day substance use type: does not use ROS ROS ED Constitutional Constitutional ED: Reports chills; Denies fever(s) Eyes Eyes: Denies change in vision or discharge from eye(s) ENT ENT ED: Denies discharge from eye(s), rhinorrhea or sore throat Cardiovascular Cardiovascular: Denies chest pain or palpitations Respiratory/Chest Respiratory/Chest: Reports dyspnea; Denies cough Gastrointestinal Gastrointestinal: Reports nausea; Denies abdominal pain, diarrhea or vomiting Genitourinary Genitourinary ED: Denies difficulty urinating or dysuria Musculoskeletal Musculoskeletal: Denies back pain or extremity pain Neurologic Neurologic: Reports weakness; Denies headache(s) Psychiatric Psychiatric: Denies anxiety or depression Allergic/Immunologic Allergic/Immunologic ED: Denies lip swelling or urticaria EXAM Physical Exam Const Vital Signs: 09/16/21 09:53 09/16/21 10:40 09/16/21 12:53 Temperature 97.2 F L Temperature Source Temporal Pulse Rate 88 80 Respiratory Rate 16 18 Respiratory Effort Short of Breath Blood Pressure 148/78 H 155/76 H Blood Pressure Mean 101 102 Pulse Ox 91 98 Oxygen Delivery Method Room Air Room Air Positive well nourished and well developed General Appearance ED: well developed HEENT Reports normocephalic and head/scalp atraumatic Eyes PERRL and EOMs intact bilaterally Neck supple Chest Wall inspection of chest normal and palpation of chest normal Resp normal respiratory effort and clear to auscultation bilaterally Cardio regular rate and regular rhythm GI normal to inspection, nondistended, normoactive bowel sounds Palpation: soft Extremity normal to inspection Neuro oriented x3 and no sensory deficits noted Neuro Narrative: No focal neurologic deficits. Sensorium / Orientation: alert Motor Exam: strength 5/5 throughout Psych mental status grossly normal Skin no rashes or lesions noted MDM MDM MDM Narrative Medical decision making narrative: Lab work, urinalysis, chest x-ray obtained. EKG ordered. Patient given IV fluids. Lab Data Attestation: I reviewed the patient's lab results. Labs: Laboratory Results - last 24 hr 09/16/21 09/16/21 09/16/21 10:30 10:30 11:30 WBC 18.7 H RBC 5.51 Hgb 15.5 Hct 48.0 MCV 87.1 MCH 28.1 MCHC 32.3 RDW Std Deviation 52.1 H RDW Coeff of Santana 17.0 H Plt Count 235 MPV 9.8 Immature Gran % (Auto) 0.900 Neut % (Auto) 88.7 H Lymph % (Auto) 7.8 L [place] % (Auto) 2.5 Eos % (Auto) 0.0 Baso % (Auto) 0.1 Absolute Neuts (auto) 16.6 H Absolute Lymphs (auto) 1.46 Nucleated RBC % 0 Sodium 134 L Potassium 4.6 Chloride 100 Carbon Dioxide 28.0 Anion Gap 6 BUN 32 H Creatinine 0.93 Estim Creat Clear Calc 63.00 Est GFR (MDRD) Af Amer 101 Est GFR (MDRD) Non-Af 83 BUN/Creatinine Ratio 34.5 H Glucose 131 H Calcium 8.5 Total Bilirubin 0.70 Direct Bilirubin 0.25 AST 13 L ALT 45 Alkaline Phosphatase 65 Total Protein 6.4 Albumin 3.0 L Globulin 3.4 Urine Color Yellow Urine Clarity Sl. Cloudy Urine pH 6.0 Ur Specific [place] 1.020 Urine Protein 30 H Urine Glucose (UA) Normal Urine Ketones 5 H Urine Occult Blood 10 H Urine Nitrite Negative Urine Bilirubin Negative Urine Urobilinogen 1 H Ur Leukocyte Esterase Negative Urine RBC 0-5 SEEN Urine WBC 0 SEEN Ur Squamous Epith Cells 0-5 SEEN Urine Bacteria 0 SEEN Urine Mucus 0 SEEN Radiography Chest X-Ray - ED: 1 View, Read by ED Physician and Chronic Changes Diagnostic Testing: Clinical Impression(s) from Imaging Studies Chest X-Ray 09/16/21 10:43 IMPRESSION: Persistent right lower lung nodule unchanged since the prior exam. Prominent right hilum. Correlation with nonemergent CT scan of the chest with contrast is again recommended. Otherwise no active pulmonary disease. Electronically Signed: Xavier Davis MD at 11:17 EDT , EKG Initial EKG: Attestation: I personally reviewed and interpreted this EKG as follows: Interpretation: Sinus Rhythm (Sinus at 76 with no acute ischemia.) Treatment and Re-Evaluation Narrative: On repeat evaluation patient is resting comfortably. Test results reviewed with him. Other than an elevated white count of 18 the remainder of labs look fairly unremarkable. He only has 5 ketones in his urine. His BUN is slightly elevated at 32 but creatinine normal at 0.93. In light of the elevated white count blood cultures were obtained. At this time patient would prefer to go home although I did suggested observation overnight for hydration and watching for initial blood culture result. I spoke with Dr. Malone, his oncologist. He advises me that the white count is likely elevated secondary to being on Decadron which I was unaware of. At this time he is okay with the patient either staying overnight for hydration or discharge to home with close observation and follow-up. Return instructions are provided. Discharge Plan Triage Chief Complaint: General Illness ED Provider: Jeanine Johnson Dx/Rx/DC Orders Clinical Impression: Generalized weakness Instructions: ED Weakness (Uncertain Cause) Prescriptions: No Action folic acid 1 mg tablet 1 mg PO DAILY ondansetron HCl 4 mg tablet 4 mg PO Q8H multivitamin [Daily Multiple] 1 EACH tablet 1 ea PO DAILY rosuvastatin 40 mg tablet 40 mg PO QHS losartan 50 mg tablet 50 mg PO DAILY dexamethasone [Decadron] 6 mg tablet 6 mg PO Q6H 7 Days Qty: 28 0RF Primary Care Provider: Charisse Benson Referrals: Charisse Benson MD [Primary Care Provider] - Calos Malone DO [STAFF PHYSICIAN] - 3-5 Days Disposition Disposition: Home, Self Care
[2021-09-16 10:42] LABS: Absolute Lymphocyte Count 1.46 X10^3/uL (0.83-4.51); Absolute Neutrophil Count 16.6 X10^3/uL (2.0-7.7); Basophil# 0.01 X10^3/uL; Basophil% 0.1 % (0-1); Hemoglobin 15.5 g/dL (13.0-16.5); Lymphocyte # 1.46 X10^3/ul (0.83-4.51); Lymphocyte % 7.8 % (19-41); Mean Corp Hgb Conc 32.3 g/dL (32-36); Mean Corpuscular Hgb 28.1 pg (27.0-32.0); Mean Corpuscular Volume 87.1 fL (80-94); Mean Platelet Vol. 9.8 fl (6.2-12.0); Monocyte# 0.46 X10^3/uL; Monocyte% 2.5 % (0-10); NRBC Flagged by Analyzer 0 % (0-5); Neutrophil # 16.58 X10^3/uL (2.7-7.7); Neutrophil % 88.7 % (47-70); Platelet Count 235 K/mm3 (150-450); RBC Distribution Width SD 52.1 fl (35.1-43.9); Red Blood Count 5.51 M/mm3 (4.6-6.2); White Blood Count 18.7 K/mm3 (4.4-11.0)
[2021-09-16] MEDS: 0.9% Normal Saline 1,000 ML 150 ML IV (10:43)
--- NOTE | 2021-09-16 10:43 | RAD_ITS ---
STUDY: X-RAY CHEST REASON FOR EXAM: Male, 81 years old. Shortness of breath TECHNIQUE: Single AP portable view of the chest. COMPARISON: 09/01/2021. FINDINGS: Persistent 1.5 cm right lower lobe nodule unchanged since prior examination. No new infiltrate is seen. There is no demonstrated pleural abnormality. Normal size heart. Prominent right hilum. Normal visualized pulmonary arteries. There is atherosclerotic tortuosity of the aortic arch and descending thoracic aorta. Degenerative changes in the visualized thoracic spine. Normal visualized ribs, clavicles, and shoulders. There is no demonstrated abnormality of the visualized soft tissue structures of the upper abdomen. RAD/Chest 1 View (Portable) IMPRESSION: Persistent right lower lung nodule unchanged since the prior exam. Prominent right hilum. Correlation with nonemergent CT scan of the chest with contrast is again recommended. Otherwise no active pulmonary disease. Electronically Signed: Xavier Davis MD at 11:17 EDT ,
[2021-09-16 10:52] LABS: AST(SGOT) 13 U/L (15-37); Alanine Aminotransfer ALT/SGPT 45 U/L (16-61); Alkaline Phosphatase 65 U/L (45-117); Anion Gap 6 (5-15); BUN 32 mg/dL (7-18); BUN/Creat Ratio 34.5 RATIO (10-20); Bilirubin, Direct 0.25 mg/dL (0.00-0.30); Calcium,Total 8.5 mg/dL (8.5-10.1); Chloride 100 mmol/L (98-107); Creatinine, Serum 0.93 mg/dL (0.70-1.30); EST Glomerular Filtration Rate 83 mL/min (>60); Est Glom Filt Rate - Afr Amer 101 mL/min (>60); Globulin 3.4 g/dL (2.2-4.2); Glucose 131 mg/dL (74-106); Potassium 4.6 mmol/L (3.5-5.1); Protein, Total 6.4 g/dL (6.4-8.2); Sodium Level 134 mmol/L (136-145)
[2021-09-16 11:35] LABS: Bacteria 0 SEEN /hpf (None Seen); Mucous, Urine 0 SEEN /hpf (<or=2+); White Blood Cells 0 SEEN /hpf (0-5)
[2021-09-16 12:07] LABS: Color, Urine Yellow (Yellow); Glucose, Dipstick Normal (Normal); Ketone-Dipstick 5 mg/dl (Negative); Leukocyte Esterase-Dipstick Negative /ul (Negative); Nitrite-Dipstick Negative (Negative); Occult Blood-Urine 10 /ul (Negative); Protein-Dipstick 30 mg/dl (Negative); Urine Bilirubin Dipstick Negative (Negative); Urine Clarity Sl. Cloudy (Clear); Urine Urobilinogen 1 mg/dl (Normal)
[2021-09-16 12:10] LABS: Red Blood Cells-Urine 0-5 SEEN /hpf (0-5); Squamous Epithelial Cells - UA 0-5 SEEN /hpf (0-5)
[2021-09-16 12:53] VITALS: BP 155/76; PULSE 80; RESP 18; O2SAT 98
[2021-09-16 14:12] VITALS: BP 156/82
[2021-09-16 14:20] VITALS: BP 142/86; PULSE 72; RESP 15; O2SAT 98
== END 2021-09-16 14:21 | disposition home or self-care (01) ==
PROVIDERS: Emergency Provider Emergency Medicine; PCP Internal Medicine; Visit Provider Emergency Medicine
DX: R53.1 Weakness (principal); F17.210 Nicotine dependence, cigarettes, uncomplicated; Z86.73 Personal history of transient ischemic attack (TIA), and cerebral infarction without residual deficits
CPT/HCPCS: 71045; 80048; 80076; 81001; 85025; 87040; 93005; 96360; 96361; 99284; J7030; A4216